=== PATIENT | male | born 1970 | race Caucasian/White ===

== ENCOUNTER 2019-03-15 10:10 | Inpatient (IN) | payer OTHER ==
[2019-03-15 10:43] VITALS: BMI 18.1
--- NOTE | 2019-03-15 12:00 | HP ---
CIWA Score Nausea/Vomitin-No Nausea/No Vomiting Muscle Tremors: 1-None Visible, but [place] Anxiety: 4-Mod. Anxious/Guarded Agitation: 1-Slight > Activity Paroxysmal Sweats: 1-Minimal Palms Moist Orientation: 2-Disoriented Date<2 days Tacttile Disturbances: 0-None Auditory Disturbances: 0-None Visual Disturbances: 0-None Headache: 1-Very Mild CIWA-Ar Total Score: 10 - Admission Criteria OASAS Guidelines: Admission for Medically Managed Detox: Requires at least one of the followin. CIWA greater than 12 2. Seizures within the past 24 hours 3. Delirium tremens within the past 24 hours 4. Hallucinations within the past 24 hours 5. Acute intervention needed for co occurring medical disorder 6. Acute intervention needed for co occurring psychiatric disorder 7. Severe withdrawal that cannot be handled at a lower level of care (continued vomiting, continued diarrhea, abnormal vital signs) requiring intravenous medication and/or fluids 8. Admitting History and Physical - Admission Chief Complaint: " I am here for detox from alcohol, cocaine and xanax." History of Present Illness: 48 year old male with alcohol with some withdrawals, cocaine use disorder, and marijuana use disorder. He is using 2 tall beers daily, last used yesterday. He denies having blackouts or withdrawal seizures. He was sober from 2016 until 1.5 years ago when he relapsed due to stressors including his mother who is very ill and he is the sole provider for her until recently when she got home care and home nursing. However, he has Crohn's disease and due to his dependence on xanax, his CIWA scores are probably less than it should be. Marijuana use is $10 daily, last used yesterday. Xanax he uses illicitly 2 sticks per day for 1 year now, daily. Smokes ciggarettes 1/2 ppd since 17 years of age. Has had some points of abstinence PMH: Crohn's Disease not well controlled on [facility]: Colostomy and Colectomy for bowel obstruction from Crohn's disease. He has otherwise very poor support systems in place. He lives with his mother who is chronically ill. - Smoking History Smoking history: Current every day smoker Have you smoked in the past 12 months: Yes Aproximately how many cigarettes per day: 10 - Alcohol/Substance Use Hx Alcohol Use: No Admission ROS S - HPI Chief Complaint: I am here for detox from alcohol, cocaine and xanax." Allergies/Adverse Reactions: Allergies Allergy/AdvReac Type Severity Reaction Status Date / Time No Known Allergies Allergy Verified 03/15/19 10:34 History of Present Illness: 48 year old male with alcohol with some withdrawals, cocaine use disorder, and marijuana use disorder. He is using 2 tall beers daily, last used yesterday. He denies having blackouts or withdrawal seizures. He was sober from 2015 until 1.5 years ago when he relapsed due to stressors including his mother who is very ill and he is the sole provider for her until recently when she got home care and home nursing. However, he has Crohn's disease and due to his dependence on xanax, his CIWA scores are probably less than it should be. Marijuana use is $10 daily, last used yesterday. Xanax he uses illicitly 2 sticks per day for 1 year now, daily. Smokes ciggarettes 1/2 ppd since 17 years of age. Has had some points of abstinence PMH: Crohn's Disease not well controlled on [facility]: Colostomy and Colectomy for bowel obstruction from Crohn's disease. He has otherwise very poor support systems in place. He lives with his mother who is chronically ill. - Ebola screening Have you traveled outside of the country in the last 21 days: No Have you had contact with anyone from an Ebola affected area: No Patient History - Patient Medical History Hx Anemia: No Hx Asthma: No Hx Chronic Obstructive Pulmonary Disease (COPD): No Hx Cancer: No Hx Cardiac Disorders: No Hx Hypertension: No Hx Hypercholesterolemia: No Hx Pacemaker: No HX Cerebrovascular Accident: No Hx Seizures: No Hx Dementia: No Hx Diabetes: No Hx Gastrointestinal Disorders: Yes (acid reflux/ crohnes disease ) Hx Liver Disease: No Hx Genitourinary Disorders: No Hx Sexually Transmitted Disorders: No Hx Renal Disease (ESRD): No Hx Thyroid Disease: No Hx Human Immunodeficiency Virus (HIV): No Hx Hepatitis C: No Hx Depression: Yes Hx Suicide Attempt: No Hx Bipolar Disorder: No Hx Schizophrenia: No - Patient Surgical History Past Surgical History: Yes Hx Neurologic Surgery: No Hx Cataract Extraction: No Hx Cardiac Surgery: No Hx Lung Surgery: No Hx Breast Surgery: No Hx Breast Biopsy: No Hx Abdominal Surgery: No Hx Appendectomy: No Hx Cholecystectomy: No Hx Genitourinary Surgery: No Hx Section: No Hx Orthopedic Surgery: No Other Surgical History: colectomy with colostomy due to crohn's disease Anesthesia Reaction: No - PPD History Previous Implant?: Yes Documented Results: Negative w/proof Implanted On Prior [facility] Admission?: Yes Date: 02/08/16 Results: negative PPD to be Administered?: Yes - Smoking Cessation Smoking history: Current every day smoker Have you smoked in the past 12 months: Yes Aproximately how many cigarettes per day: 10 Hx Chewing Tobacco Use: No Initiated information on smoking cessation: Yes 'Breaking Loose' booklet given: 03/15/19 - Substances abused Alcohol Substance route: Oral Frequency: Daily Amount used: BEERS- 2-3(24OZ) Age of first use: 15 Date of last use: 03/14/19 Alprazolam (Xanax) Substance route: Oral Frequency: Daily Amount used: 4MG Age of first use: 40 Date of last use: 03/15/19 Marijuana/Hashish Substance route: Smoking Frequency: Daily Amount used: $10 Age of first use: 15 Date of last use: 03/15/19 Admission Physical Exam BHS - Vital Signs Vital Signs: Vital Signs - 24 hr 03/15/19 10:26 Temperature 98.2 F Pulse Rate 75 Respiratory 18 Rate Blood Pressure 107/70 - Physical General Appearance: Yes: Cachetic, Sweating, Anxious HEENTM: Yes: EOMI, Hearing grossly Normal, Normocephalic, JARROD, Pharynx Normal, Tm's normal Respiratory: Yes: Chest Non-Tender, Lungs Clear, Normal Breath Sounds, No Respiratory Distress, No Accessory Muscle Use Neck: Yes: No masses,lesions,Nodules, Supple, Trachea in good position Breast: Yes: Within Normal Limits Cardiology: Yes: Regular Rhythm, S1, S2, Tachycardia Abdominal: Yes: Normal Bowel Sounds, Non Tender, Flat, Soft Genitourinary: Yes: Within Normal Limits Back: Yes: Normal Inspection Musculoskeletal: Yes: full range of Motion, Gait Steady Extremities: Yes: Normal Capillary Refill, Normal Inspection, Normal Range of Motion, Non-Tender Neurological: Yes: bulk fluids handler II-XII NML intact, Fully Oriented, Alert, Motor Strength 5/5, Normal Mood/Affect, Normal Response Integumentary: Yes: Normal Color, Warm Lymphatic: Yes: Within Normal Limits - Diagnostic (1) Alcohol dependence with withdrawal Current Visit: Yes Status: Acute (2) Nicotine dependence Current Visit: Yes Status: Acute Qualifiers: Nicotine product type: cigarettes Substance use status: uncomplicated Qualified Code(s): F17.210 - Nicotine dependence, cigarettes, uncomplicated (3) Opioid dependence on agonist therapy Current Visit: Yes Status: Acute (4) Sedative, hypnotic or anxiolytic dependence with withdrawal, uncomplicated Current Visit: Yes Status: Acute (5) Methadone maintenance therapy patient Current Visit: Yes Status: Chronic Comment: pt receives 90mg of methadone last dose today. verification done Screened but not Admitted - Documentation of Visit Screened but not Admitted: No Breathalyzer - Breathalyzer Breathalyzer: 0 Urine Drug Screen - Test Device Lot number: [id number] Expiration date: 10/28/20 - Control Is test valid?: Yes - Results Drug screen NEGATIVE: No Urine drug screen results: THC-Marijuana, ELIAS-Cocaine, MOP-Opiates, OXY- Oxycodone, MTD-Methadone, BZO-Benzodiazepines Inpatient Rehab Admission - Rehab Decision to Admit Inpatient rehab admission?: No
[2019-03-15] MEDS ORDERED: IBUPROFEN 400 MG TABLET (FP) PO PRN (12:12)
[2019-03-15] MEDS ORDERED: MAGNESIUM HYDROX 2400MG/30ML ORAL SUSPENSION 30 ML CUP PO PRN (12:12)
[2019-03-15] MEDS ORDERED: MAG HYDROX/AL HYDROX/SIMETH 30 ML UNIT-DOSE CUP PO PRN (12:12)
[2019-03-15] MEDS ORDERED: MENTHOL/PHENOL 1 EACH UD MM PRN (12:12)
[2019-03-15] MEDS ORDERED: BISMUTH SUBSALICYLATE 262 MG/15 ML BTL PO PRN (12:12)
[2019-03-15] MEDS ORDERED: ACETAMINOPHEN 325 MG TABLET (FP) PO PRN ×2 (12:12)
[2019-03-15] MEDS ORDERED: MELATONIN 5 MG TABLETS PO PRN (12:12)
[2019-03-15] MEDS ORDERED: MAGNESIUM CITRATE 300 ML BOTTLE PO PRN (12:12)
[2019-03-15] MEDS ORDERED: FAMOTIDINE 20 MG TABLET PO PRN (12:14)
[2019-03-15] MEDS: chlordiazePOXIDE HCL 25 MG CAPSULE PO SCH ×2 (13:42→21:50)
[2019-03-15 14:34] LABS: HEMATOCRIT 36.7 % (35.4-49); HEMOGLOBIN 12.2 GM/dL (11.7-16.9); MCH 28.7 pg (25.7-33.7); MCHC 33.3 g/dl (32.0-35.9); MEAN CELL VOLUME 86.2 fl (80-96); MEAN PLT VOLUME 10.2 fl (7.5-11.1); PLATELET COUNT 229 K/MM3 (134-434); RBC 4.26 M/mm3 (4.00-5.60); RDW 15.7 % (11.9-15.9); WHITE BLOOD COUNT 9.3 K/mm3 (4.0-10.0)
[2019-03-15 14:44] LABS: ALBUMIN 3.4 g/dl (3.4-5.0); BILIRUBIN,TOTAL 0.2 mg/dL (0.2-1); BLOOD UREA NITROGEN 9.5 mg/dL (7-18); CALCIUM 8.7 mg/dL (8.5-10.1); CREATININE 0.9 mg/dL (0.55-1.3); POTASSIUM 4.2 mmol/L (3.5-5.1); TOT PROT 6.1 g/dl (6.4-8.2)
[2019-03-15] MEDS: METHOCARBAMOL 500 MG TABLET PO PRN ×2 (17:15→21:51)
[2019-03-15] MEDS: chlordiazePOXIDE HCL 10 MG CAPSULE PO PRN (17:16)
[2019-03-15] MEDS: NICOTINE POLACRILEX 2 MG GUM BUC PRN ×2 (19:54→21:17)
[2019-03-15] MEDS: THIAMINE HCL 100 MG TABLET (FP) PO SCH (21:52)
[2019-03-16] MEDS ORDERED: METHADONE HCL 10 MG TABLET ONE (05:24)
[2019-03-16] MEDS ORDERED: METHADONE HCL 40 MG DISPERSABLE TABLET ONE (05:24)
[2019-03-16] MEDS ORDERED: METHADONE HCL 10 MG TABLET PO SCH (06:00)
[2019-03-16] MEDS: chlordiazePOXIDE HCL 25 MG CAPSULE PO SCH ×3 (06:10→22:14)
[2019-03-16] MEDS: METHADONE 80 MG, METHADONE 10 MG PO SCH (06:10)
[2019-03-16] MEDS: NICOTINE POLACRILEX 2 MG GUM BUC PRN ×6 (06:13→21:03)
[2019-03-16] MEDS: PRENATAL VITAMINS W/ FOLIC ACID TABLET (FP) PO SCH (11:08)
[2019-03-16] MEDS: NICOTINE 14 MG/24 HOURS TOPICAL PATCH TD SCH (11:08)
--- NOTE | 2019-03-16 12:43 | PN ---
S CIWA - CIWA Score Nausea/Vomitin-No Nausea/No Vomiting Muscle Tremors: 3 Anxiety: 3 Agitation: 4-Moderately Restless Paroxysmal Sweats: 3 Orientation: 0-Oriented Tacttile Disturbances: 0-None Auditory Disturbances: 0-None Visual Disturbances: 0-None Headache: 0-None Present CIWA-Ar Total Score: 13 BHS Progress Note (SOAP) Subjective: sweats shakes interrupted sleep body aches i need to see dietary performance consultant. I have chrons disease. Objective: 03/16/19 12:42 Vital Signs Temperature 98.1 F 03/16/19 10:03 Pulse Rate 61 03/16/19 10:03 Respiratory Rate 18 03/16/19 10:03 Blood Pressure 107/61 03/16/19 10:03 O2 Sat by Pulse Oximetry (%) Laboratory Tests 03/15/19 03/15/19 03/15/19 12:00 12:00 12:00 WBC 9.3 RBC 4.26 Hgb 12.2 Hct 36.7 D MCV 86.2 MCH 28.7 D MCHC 33.3 RDW 15.7 D Plt Count 229 MPV 10.2 Sodium 142 Potassium 4.2 Chloride 108 H Carbon Dioxide 28 Anion Gap 6 L BUN 9.5 Creatinine 0.9 Est GFR (CKD-EPI)AfAm 115.83 Est GFR (CKD-EPI)NonAf 99.94 Random Glucose 81 Calcium 8.7 Total Bilirubin 0.2 AST 19 ALT 22 Alkaline Phosphatase 82 Total Protein 6.1 L Albumin 3.4 RPR Titer Nonreactive labs noted aaox3 ambulating no acute distress Assessment: 03/16/19 12:42 withdrawal sx Plan: continue detox increase fluids ensure bid dietary consultation ordered
[2019-03-16] MEDS: METHOCARBAMOL 500 MG TABLET PO PRN ×2 (13:24→19:37)
[2019-03-16] MEDS: hydrOXYzine PAMOATE 25 MG CAPSULE (FP) PO PRN (15:58)
[2019-03-16] MEDS: chlordiazePOXIDE HCL 10 MG CAPSULE PO PRN (17:31)
[2019-03-16] MEDS: MELATONIN 5 MG TABLETS PO PRN (22:14)
[2019-03-16] MEDS: THIAMINE HCL 100 MG TABLET (FP) PO SCH (22:14)
[2019-03-17] MEDS: hydrOXYzine PAMOATE 25 MG CAPSULE (FP) PO PRN ×2 (02:47→15:14)
[2019-03-17] MEDS ORDERED: METHADONE HCL 10 MG TABLET ONE (03:41)
[2019-03-17] MEDS ORDERED: METHADONE HCL 40 MG DISPERSABLE TABLET ONE (03:41)
[2019-03-17] MEDS: METHADONE 80 MG, METHADONE 10 MG PO SCH (05:55)
[2019-03-17] MEDS: chlordiazePOXIDE 5 MG CAPSULE PO SCH ×3 (05:59→22:11)
[2019-03-17] MEDS: NICOTINE POLACRILEX 2 MG GUM BUC PRN ×4 (07:09→15:17)
[2019-03-17] MEDS: NICOTINE 14 MG/24 HOURS TOPICAL PATCH TD SCH (10:55)
[2019-03-17] MEDS: PRENATAL VITAMINS W/ FOLIC ACID TABLET (FP) PO SCH (10:55)
--- NOTE | 2019-03-17 15:27 | PN ---
S CIWA - CIWA Score Nausea/Vomitin-No Nausea/No Vomiting Muscle Tremors: 3 Anxiety: 2 Agitation: 3 Paroxysmal Sweats: 2 Orientation: 0-Oriented Tacttile Disturbances: 0-None Auditory Disturbances: 0-None Visual Disturbances: 0-None Headache: 0-None Present CIWA-Ar Total Score: 10 S Progress Note (SOAP) Subjective: anxiety sweats interrupted sleep Objective: 03/17/19 15:24 Vital Signs Temperature 98.4 F 03/17/19 14:28 Pulse Rate 61 03/17/19 14:28 Respiratory Rate 18 03/17/19 14:28 Blood Pressure 119/75 03/17/19 14:28 O2 Sat by Pulse Oximetry (%) Laboratory Tests 03/15/19 03/15/19 03/15/19 12:00 12:00 12:00 WBC 9.3 RBC 4.26 Hgb 12.2 Hct 36.7 D MCV 86.2 MCH 28.7 D MCHC 33.3 RDW 15.7 D Plt Count 229 MPV 10.2 Sodium 142 Potassium 4.2 Chloride 108 H Carbon Dioxide 28 Anion Gap 6 L BUN 9.5 Creatinine 0.9 Est GFR (CKD-EPI)AfAm 115.83 Est GFR (CKD-EPI)NonAf 99.94 Random Glucose 81 Calcium 8.7 Total Bilirubin 0.2 AST 19 ALT 22 Alkaline Phosphatase 82 Total Protein 6.1 L Albumin 3.4 RPR Titer Nonreactive labs noted aaox3 ambulating Assessment: 03/17/19 15:27 withdrawals Plan: continue detox
[2019-03-17] MEDS: THIAMINE HCL 100 MG TABLET (FP) PO SCH (22:11)
[2019-03-17] MEDS: MELATONIN 5 MG TABLETS PO PRN (22:12)
[2019-03-18] MEDS ORDERED: chlordiazePOXIDE HCL 10 MG CAPSULE PO PRN
[2019-03-18] MEDS: NICOTINE POLACRILEX 2 MG GUM BUC PRN ×5 (02:41→21:31)
[2019-03-18] MEDS ORDERED: METHADONE HCL 10 MG TABLET ONE (04:15)
[2019-03-18] MEDS ORDERED: METHADONE HCL 40 MG DISPERSABLE TABLET ONE (04:15)
[2019-03-18] MEDS: METHADONE 80 MG, METHADONE 10 MG PO SCH (06:02)
[2019-03-18] MEDS: chlordiazePOXIDE HCL 10 MG CAPSULE PO SCH ×3 (06:03→22:33)
[2019-03-18] MEDS: PRENATAL VITAMINS W/ FOLIC ACID TABLET (FP) PO SCH (10:20)
[2019-03-18] MEDS: NICOTINE 14 MG/24 HOURS TOPICAL PATCH TD SCH (10:20)
--- NOTE | 2019-03-18 12:58 | PN ---
S CIWA - CIWA Score Nausea/Vomitin-No Nausea/No Vomiting Muscle Tremors: None Anxiety: 2 Agitation: 0-Normal Activity Paroxysmal Sweats: 2 Orientation: 0-Oriented Tacttile Disturbances: 0-None Auditory Disturbances: 0-None Visual Disturbances: 0-None Headache: 2-Mild CIWA-Ar Total Score: 6 BHS Progress Note (SOAP) Subjective: c/o headache, sweats, and anxiety. Objective: 03/18/19 12:57 Vital Signs 03/18/19 03/18/19 03/18/19 06:00 09:50 12:40 Temperature 97.7 F 98.1 F 98.6 F Pulse Rate 68 63 74 Respiratory 18 18 18 Rate Blood Pressure 121/78 127/76 126/61 Laboratory Last Values WBC 9.3 K/mm3 (4.0-10.0) 03/15/19 12:00 RBC 4.26 M/mm3 (4.00-5.60) 03/15/19 12:00 Hgb 12.2 GM/dL (11.7-16.9) 03/15/19 12:00 Hct 36.7 % (35.4-49) D 03/15/19 12:00 MCV 86.2 fl (80-96) 03/15/19 12:00 MCH 28.7 pg (25.7-33.7) D 03/15/19 12:00 MCHC 33.3 g/dl (32.0-35.9) 03/15/19 12:00 RDW 15.7 % (11.9-15.9) D 03/15/19 12:00 Plt Count 229 K/MM3 (134-434) 03/15/19 12:00 MPV 10.2 fl (7.5-11.1) 03/15/19 12:00 Sodium 142 mmol/L (136-145) 03/15/19 12:00 Potassium 4.2 mmol/L (3.5-5.1) 03/15/19 12:00 Chloride 108 mmol/L (98-107) H 03/15/19 12:00 Carbon Dioxide 28 mmol/L (21-32) 03/15/19 12:00 Anion Gap 6 MMOL/L (8-16) L 03/15/19 12:00 BUN 9.5 mg/dL (7-18) 03/15/19 12:00 Creatinine 0.9 mg/dL (0.55-1.3) 03/15/19 12:00 Est GFR (CKD-EPI)AfAm 115.83 03/15/19 12:00 Est GFR (CKD-EPI)NonAf 99.94 03/15/19 12:00 Random Glucose 81 mg/dL (74-106) 03/15/19 12:00 Calcium 8.7 mg/dL (8.5-10.1) 03/15/19 12:00 Total Bilirubin 0.2 mg/dL (0.2-1) 03/15/19 12:00 AST 19 U/L (15-37) 03/15/19 12:00 ALT 22 U/L (13-61) 03/15/19 12:00 Alkaline Phosphatase 82 U/L (45-117) 03/15/19 12:00 Total Protein 6.1 g/dl (6.4-8.2) L 03/15/19 12:00 Albumin 3.4 g/dl (3.4-5.0) 03/15/19 12:00 RPR Titer Nonreactive (NONREACTIVE) 03/15/19 12:00 Labs noted. Assessment: 03/18/19 12:58 AOX3, in no acute respiratory distress. Full ROM, ambulating in the unit. Withdrawal symptoms. For d/c tomorrow. Plan: continue detox. D/C in AM.
[2019-03-18] MEDS: METHOCARBAMOL 500 MG TABLET PO PRN (18:52)
[2019-03-18] MEDS: THIAMINE HCL 100 MG TABLET (FP) PO SCH (22:33)
[2019-03-18] MEDS: MELATONIN 5 MG TABLETS PO PRN (22:34)
[2019-03-19] MEDS: hydrOXYzine PAMOATE 25 MG CAPSULE (FP) PO PRN (01:36)
[2019-03-19] MEDS ORDERED: chlordiazePOXIDE HCL 10 MG CAPSULE PO ONE (05:00)
[2019-03-19] MEDS ORDERED: METHADONE HCL 10 MG TABLET ONE (06:03)
[2019-03-19] MEDS ORDERED: METHADONE HCL 40 MG DISPERSABLE TABLET ONE (06:03)
[2019-03-19] MEDS: METHADONE 80 MG, METHADONE 10 MG PO SCH (06:04)
[2019-03-19] MEDS: NICOTINE POLACRILEX 2 MG GUM BUC PRN (07:21)
[2019-03-19 09:54] VITALS: BP 139/76; PULSE 68; TEMP 97.9
--- NOTE | 2019-03-19 17:24 | DS ---
[facility] Detox Discharge Summary Admission Date: 03/15/19 - History Present History: Alcohol Dependence, Cannabis Dependence, Cocaine Dependence, Sedative Dependence Additional Comments: Patient completed detox successfully and discharged safely. Instructed to follow up with PCP/Psychiatrist within 1-2 weeks. Pertinent Past History: Crohn's disease GERD - Physical Exam Results Vital Signs: Vital Signs Temperature 97.9 F 03/19/19 09:50 Pulse Rate 68 03/19/19 09:50 Respiratory Rate 18 03/19/19 09:50 Blood Pressure 139/76 03/19/19 09:50 O2 Sat by Pulse Oximetry (%) Pertinent Admission Physical Exam Findings: Withdrawal sxs Laboratory Tests 03/15/19 03/15/19 03/15/19 12:00 12:00 12:00 WBC 9.3 RBC 4.26 Hgb 12.2 Hct 36.7 D MCV 86.2 MCH 28.7 D MCHC 33.3 RDW 15.7 D Plt Count 229 MPV 10.2 Sodium 142 Potassium 4.2 Chloride 108 H Carbon Dioxide 28 Anion Gap 6 L BUN 9.5 Creatinine 0.9 Est GFR (CKD-EPI)AfAm 115.83 Est GFR (CKD-EPI)NonAf 99.94 Random Glucose 81 Calcium 8.7 Total Bilirubin 0.2 AST 19 ALT 22 Alkaline Phosphatase 82 Total Protein 6.1 L Albumin 3.4 RPR Titer Nonreactive Labs reviewed - Treatment Hospital Course: Detox Protocol Followed, Detoxed Safely, Responded well, Discharged Condition Good - Medication Discharge Medications: Ambulatory Orders Ranitidine [Zantac -] 150 mg PO DAILY PRN 03/15/19 Zolpidem Tartrate [Ambien] 10 mg PO HS 03/15/19 - Diagnosis (1) Cocaine dependence Status: Chronic (2) Cannabis dependence Status: Chronic (3) Crohn disease Status: Chronic (4) GERD (gastroesophageal reflux disease) Status: Chronic (5) Depression Status: Chronic (6) Alcohol dependence with withdrawal Status: Acute (7) Nicotine dependence Status: Chronic Qualifiers: Nicotine product type: cigarettes Substance use status: uncomplicated Qualified Code(s): F17.210 - Nicotine dependence, cigarettes, uncomplicated (8) Sedative, hypnotic or anxiolytic dependence with withdrawal, uncomplicated Status: Acute - AMA Did Patient Leave Against Medical Advice: No (Follow up with PCP within 1-2 weeks)
== END 2019-03-19 10:30 | disposition home or self-care (01) | DRG 897 ==
LOC: YASAS 10:10 → Y6N 12:39
PROVIDERS: ADMIT Allergy & Immunology; ATTEND Allergy & Immunology
PROC: HZ2ZZZZ Detoxification Services for Substance Abuse Treatment (ICD-10-PCS; principal; 2019-03-15)
DX: F10.230 Alcohol dependence with withdrawal, uncomplicated (principal); F11.20 Opioid dependence, uncomplicated; F14.20 Cocaine dependence, uncomplicated; K50.90 Crohn's disease, unspecified, without complications; F13.230 Sedative, hypnotic or anxiolytic dependence with withdrawal, uncomplicated; F12.20 Cannabis dependence, uncomplicated; F17.210 Nicotine dependence, cigarettes, uncomplicated; K21.9 Gastro-esophageal reflux disease without esophagitis; Z93.3 Colostomy status; Z90.49 Acquired absence of other specified parts of digestive tract
CPT/HCPCS: 36415; 80053; 85027; 86593

== ENCOUNTER 2020-06-19 10:36 | Inpatient (IN) | payer OTHER ==
[2020-06-19 12:50] VITALS: BMI 19.3
[2020-06-19] MEDS ORDERED: MAG HYDROX/AL HYDROX/SIMETH 30 ML UNIT-DOSE CUP PO PRN (13:12)
[2020-06-19] MEDS ORDERED: MAGNESIUM CITRATE 300 ML BOTTLE PO PRN (13:12)
[2020-06-19] MEDS ORDERED: BISMUTH SUBSALICYLATE 524 MG/30 ML UD PO PRN (13:12)
[2020-06-19] MEDS ORDERED: MENTHOL/PHENOL 1 EACH UD MM PRN (13:12)
[2020-06-19] MEDS ORDERED: ONDANSETRON *ODT* 4 MG TABLET SL PRN (13:12)
[2020-06-19] MEDS ORDERED: MAGNESIUM HYDROX 2400MG/30ML ORAL SUSPENSION 30 ML CUP PO PRN (13:12)
[2020-06-19] MEDS ORDERED: METHOCARBAMOL 500 MG TABLET PO PRN (13:12)
[2020-06-19] MEDS ORDERED: ACETAMINOPHEN 325 MG TABLET (FP) PO PRN ×2 (13:12)
[2020-06-19] MEDS ORDERED: IBUPROFEN 400 MG TABLET (FP) PO PRN (13:12)
[2020-06-19] MEDS: hydrOXYzine PAMOATE 25 MG CAPSULE (FP) PO SCH ×3 (15:09→22:23)
[2020-06-19] MEDS: LORazepam 1 MG TABLET PO PRN (15:10)
[2020-06-19] MEDS: NICOTINE 14 MG/24 HOURS TOPICAL PATCH TD SCH (15:10)
[2020-06-19 15:50] LABS: HEMATOCRIT 33.8 % (35.4-49); HEMOGLOBIN 11.2 GM/dL (11.7-16.9); MCH 27.3 pg (25.7-33.7); MEAN CELL VOLUME 82.7 fl (80-96); MEAN PLT VOLUME 10.5 fl (7.5-11.1); PLATELET COUNT 241 K/MM3 (134-434); RBC 4.09 M/mm3 (4.00-5.60); RDW 17.9 % (11.9-15.9); WHITE BLOOD COUNT 8.3 K/mm3 (4.0-10.0)
[2020-06-19 16:14] LABS: POTASSIUM 3.8 mmol/L (3.5-5.1)
[2020-06-19 16:26] LABS: BLOOD UREA NITROGEN 13.4 mg/dL (7-18)
[2020-06-19 16:27] LABS: CALCIUM 8.8 mg/dL (8.5-10.1)
[2020-06-19 16:28] LABS: ALBUMIN 3.4 g/dl (3.4-5.0)
[2020-06-19 16:30] LABS: BILIRUBIN,TOTAL 0.2 mg/dL (0.2-1); CREATININE 0.8 mg/dL (0.55-1.3); TOT PROT 6.5 g/dl (6.4-8.2)
[2020-06-19] MEDS: LORazepam 2 MG TABLET PO SCH ×2 (17:48→22:23)
[2020-06-19] MEDS: NICOTINE POLACRILEX 2 MG GUM BUC PRN ×2 (19:14→22:51)
[2020-06-19] MEDS ORDERED: MELATONIN 5 MG TABLETS PO SCH (22:00)
[2020-06-19] MEDS: THIAMINE HCL 100 MG TABLET (FP) PO SCH (22:23)
[2020-06-19] MEDS: SUVOREXANT 10 MG TABLET PO PRN (22:24)
[2020-06-20] MEDS: LORazepam 2 MG TABLET PO SCH ×4 (05:58→22:31)
[2020-06-20] MEDS: hydrOXYzine PAMOATE 25 MG CAPSULE (FP) PO SCH ×2 (05:58→10:09)
[2020-06-20] MEDS: NICOTINE POLACRILEX 2 MG GUM BUC PRN ×4 (06:14→22:33)
[2020-06-20] MEDS ORDERED: METHADONE HCL 10 MG TABLET PO SCH (06:45)
[2020-06-20] MEDS ORDERED: METHADONE HCL 10 MG TABLET ONE (06:48)
[2020-06-20] MEDS ORDERED: METHADONE HCL 40 MG DISPERSABLE TABLET ONE (06:48)
[2020-06-20] MEDS: METHADONE 80 MG, METHADONE 30 MG PO SCH (06:51)
[2020-06-20] MEDS: NICOTINE 14 MG/24 HOURS TOPICAL PATCH TD SCH (10:09)
[2020-06-20] MEDS: PRENATAL VITAMINS W/ FOLIC ACID TABLET (FP) PO SCH (10:09)
[2020-06-20] MEDS: ARIPiprazole 2 MG TABLET PO SCH (11:18)
[2020-06-20] MEDS: hydrOXYzine PAMOATE 25 MG CAPSULE (FP) PO PRN (13:59)
[2020-06-20] MEDS: LORazepam 1 MG TABLET PO PRN (13:59)
[2020-06-20] MEDS: PANTOPRAZOLE 40 MG TABLET PO SCH (15:27)
[2020-06-20] MEDS: SUVOREXANT 10 MG TABLET PO PRN (22:31)
[2020-06-20] MEDS: THIAMINE HCL 100 MG TABLET (FP) PO SCH (22:31)
[2020-06-21] MEDS ORDERED: METHADONE HCL 10 MG TABLET ONE (04:12)
[2020-06-21] MEDS ORDERED: METHADONE HCL 40 MG DISPERSABLE TABLET ONE (04:13)
[2020-06-21] MEDS: METHADONE 80 MG, METHADONE 30 MG PO SCH (05:35)
[2020-06-21] MEDS: LORazepam 1 MG TABLET PO SCH ×4 (05:35→22:00)
[2020-06-21] MEDS: NICOTINE POLACRILEX 2 MG GUM BUC PRN ×4 (07:05→22:25)
[2020-06-21] MEDS: PRENATAL VITAMINS W/ FOLIC ACID TABLET (FP) PO SCH (10:11)
[2020-06-21] MEDS: ARIPiprazole 2 MG TABLET PO SCH (10:11)
[2020-06-21] MEDS: PANTOPRAZOLE 40 MG TABLET PO SCH (10:12)
[2020-06-21] MEDS: NICOTINE 14 MG/24 HOURS TOPICAL PATCH TD SCH (10:12)
[2020-06-21] MEDS: HYDROCORTISONE 1% TOPICAL CREAM 30 GM TUBE TP PRN (10:53)
[2020-06-21] MEDS: hydrOXYzine PAMOATE 25 MG CAPSULE (FP) PO PRN (13:13)
[2020-06-21] MEDS ORDERED: SODIUM CHLORIDE NASAL SPRAY 44 ML BOTTLE NS PRN (15:44)
[2020-06-21] MEDS: THIAMINE HCL 100 MG TABLET (FP) PO SCH (21:21)
[2020-06-21] MEDS: QUEtiapine FUMARATE 25 MG TABLET PO SCH (21:21)
[2020-06-21] MEDS ORDERED: QUEtiapine FUMARATE 25 MG TABLET PO SCH (22:00)
[2020-06-22] MEDS ORDERED: LORazepam 0.5 MG TABLET PO PRN
[2020-06-22] MEDS ORDERED: METHADONE HCL 40 MG DISPERSABLE TABLET ONE (04:16)
[2020-06-22] MEDS ORDERED: METHADONE HCL 10 MG TABLET ONE (04:16)
[2020-06-22] MEDS: NICOTINE POLACRILEX 2 MG GUM BUC PRN ×4 (04:45→22:14)
[2020-06-22] MEDS: LORazepam 0.5 MG TABLET PO SCH ×4 (05:22→22:11)
[2020-06-22] MEDS: METHADONE 80 MG, METHADONE 30 MG PO SCH (05:22)
[2020-06-22] MEDS: PRENATAL VITAMINS W/ FOLIC ACID TABLET (FP) PO SCH (10:30)
[2020-06-22] MEDS: ARIPiprazole 2 MG TABLET PO SCH (10:30)
[2020-06-22] MEDS: NICOTINE 14 MG/24 HOURS TOPICAL PATCH TD SCH (10:32)
[2020-06-22] MEDS: PANTOPRAZOLE 40 MG TABLET PO SCH (10:32)
[2020-06-22] MEDS: hydrOXYzine PAMOATE 25 MG CAPSULE (FP) PO PRN ×2 (17:23→22:12)
[2020-06-22] MEDS: QUEtiapine FUMARATE 25 MG TABLET PO SCH (22:11)
[2020-06-22] MEDS: THIAMINE HCL 100 MG TABLET (FP) PO SCH (22:11)
[2020-06-22] MEDS: HYDROCORTISONE 1% TOPICAL CREAM 30 GM TUBE TP PRN (22:12)
[2020-06-23] MEDS ORDERED: METHADONE HCL 10 MG TABLET ONE (04:05)
[2020-06-23] MEDS ORDERED: METHADONE HCL 40 MG DISPERSABLE TABLET ONE (04:06)
[2020-06-23] MEDS ORDERED: LORazepam 0.5 MG TABLET PO ONE (05:00)
[2020-06-23] MEDS: METHADONE 80 MG, METHADONE 30 MG PO SCH (05:16)
[2020-06-23 06:32] VITALS: BP 136/83; PULSE 70; TEMP 98
[2020-06-23] MEDS: NICOTINE POLACRILEX 2 MG GUM BUC PRN (07:39)
[2020-06-23] MEDS: NICOTINE 14 MG/24 HOURS TOPICAL PATCH TD SCH (09:00)
[2020-06-23] MEDS: PRENATAL VITAMINS W/ FOLIC ACID TABLET (FP) PO SCH (09:00)
[2020-06-23] MEDS: ARIPiprazole 2 MG TABLET PO SCH (09:00)
[2020-06-23] MEDS: PANTOPRAZOLE 40 MG TABLET PO SCH (09:00)
== END 2020-06-23 09:04 | disposition home or self-care (01) | DRG 897 ==
LOC: YASAS 10:36 → Y3N 12:59
PROVIDERS: ADMIT Allergy & Immunology; ATTEND Allergy & Immunology
PROC: HZ2ZZZZ Detoxification Services for Substance Abuse Treatment (ICD-10-PCS; principal; 2020-06-19)
DX: F13.230 Sedative, hypnotic or anxiolytic dependence with withdrawal, uncomplicated (principal); F11.20 Opioid dependence, uncomplicated; K50.90 Crohn's disease, unspecified, without complications; Z68.1 Body mass index [BMI] 19.9 or less, adult; F12.20 Cannabis dependence, uncomplicated; F17.210 Nicotine dependence, cigarettes, uncomplicated; F41.9 Anxiety disorder, unspecified; K21.9 Gastro-esophageal reflux disease without esophagitis; R21 Rash and other nonspecific skin eruption; R63.4 Abnormal weight loss; Z87.19 Personal history of other diseases of the digestive system; Z98.890 Other specified postprocedural states
CPT/HCPCS: 36415; 80053; 85027; 86780; 93005; 93010; C9803; U0003

== ENCOUNTER 2020-11-01 12:24 | Inpatient (IN) | payer OTHER ==
[2020-11-01 13:43] VITALS: BMI 19.2
[2020-11-01] MEDS ORDERED: MAGNESIUM CITRATE 300 ML BOTTLE PO PRN (17:37)
[2020-11-01] MEDS ORDERED: ACETAMINOPHEN 325 MG TABLET (FP) PO PRN ×2 (17:37)
[2020-11-01] MEDS ORDERED: BISMUTH SUBSALICYLATE 524 MG/30 ML PO PRN (17:37)
[2020-11-01] MEDS ORDERED: MENTHOL/PHENOL 1 EACH UD MM PRN (17:37)
[2020-11-01] MEDS ORDERED: diazePAM 5 MG TABLET PO ONE (17:37)
[2020-11-01] MEDS ORDERED: METHOCARBAMOL 500 MG TABLET PO PRN (17:37)
[2020-11-01] MEDS ORDERED: ONDANSETRON *ODT* 4 MG TABLET SL PRN (17:37)
[2020-11-01] MEDS ORDERED: IBUPROFEN 400 MG TABLET (FP) PO PRN (17:37)
[2020-11-01] MEDS ORDERED: MAG HYDROX/AL HYDROX/SIMETH 30 ML UNIT-DOSE CUP PO PRN (17:37)
[2020-11-01] MEDS ORDERED: MAGNESIUM HYDROX 2400MG/30ML ORAL SUSPENSION 30 ML CUP PO PRN (17:37)
[2020-11-01] MEDS: PRENATAL VITAMINS W/ FOLIC ACID TABLET (FP) PO SCH (18:52)
[2020-11-01] MEDS: NICOTINE 21 MG/24 HOURS TOPICAL PATCH TD SCH (18:52)
[2020-11-01] MEDS: hydrOXYzine PAMOATE 25 MG CAPSULE (FP) PO SCH ×2 (18:55→22:36)
[2020-11-01] MEDS: LIDOCAINE 5% TOPICAL PATCH TP SCH (18:55)
[2020-11-01] MEDS: NICOTINE POLACRILEX 2 MG GUM BUC PRN ×2 (20:02→22:42)
[2020-11-01] MEDS ORDERED: MELATONIN 5 MG TABLETS PO SCH (22:00)
[2020-11-01] MEDS: LIDOCAINE PATCH REMOVAL MC SCH (22:35)
[2020-11-01] MEDS: diazePAM 5 MG TABLET PO SCH (22:35)
[2020-11-01] MEDS: THIAMINE HCL 100 MG TABLET (FP) PO SCH (22:36)
[2020-11-02] MEDS: hydrOXYzine PAMOATE 25 MG CAPSULE (FP) PO SCH ×7 (06:07→23:45)
[2020-11-02] MEDS: diazePAM 5 MG TABLET PO SCH ×5 (06:07→23:45)
[2020-11-02] MEDS ORDERED: METHADONE HCL 40 MG DISPERSABLE TABLET ONE (06:54)
[2020-11-02] MEDS ORDERED: METHADONE HCL 10 MG TABLET ONE (06:54)
[2020-11-02] MEDS: METHADONE 80 MG, METHADONE 30 MG PO SCH (06:58)
[2020-11-02] MEDS ORDERED: METHADONE HCL 10 MG TABLET (FOR DETOX USE ONLY) PO SCH (08:00)
[2020-11-02] MEDS: NICOTINE POLACRILEX 2 MG GUM BUC PRN ×4 (08:52→23:36)
[2020-11-02] MEDS: PRENATAL VITAMINS W/ FOLIC ACID TABLET (FP) PO SCH (10:23)
[2020-11-02] MEDS: MULTIVITAMINS (DAILY MVI) TABLET (FP) PO SCH (10:23)
[2020-11-02] MEDS: ENTECAVIR 0.5 MG TABLET PO SCH (10:23)
[2020-11-02] MEDS: LIDOCAINE 5% TOPICAL PATCH TP SCH (10:25)
[2020-11-02] MEDS: NICOTINE 21 MG/24 HOURS TOPICAL PATCH TD SCH (10:26)
[2020-11-02] MEDS: THIAMINE HCL 100 MG TABLET (FP) PO SCH ×2 (22:39→23:45)
[2020-11-02] MEDS: LIDOCAINE PATCH REMOVAL MC SCH (22:40)
[2020-11-02] MEDS: SUVOREXANT 10 MG TABLET PO PRN ×2 (22:40→23:45)
[2020-11-03] MEDS ORDERED: METHADONE HCL 40 MG DISPERSABLE TABLET ONE (04:42)
[2020-11-03] MEDS ORDERED: METHADONE HCL 10 MG TABLET ONE (04:42)
[2020-11-03] MEDS: hydrOXYzine PAMOATE 25 MG CAPSULE (FP) PO SCH ×5 (05:53→22:03)
[2020-11-03] MEDS: diazePAM 5 MG TABLET PO SCH ×3 (05:54→22:03)
[2020-11-03] MEDS: METHADONE 80 MG, METHADONE 30 MG PO SCH (05:55)
[2020-11-03] MEDS: NICOTINE POLACRILEX 2 MG GUM BUC PRN ×3 (09:06→17:47)
[2020-11-03] MEDS: MULTIVITAMINS (DAILY MVI) TABLET (FP) PO SCH (10:35)
[2020-11-03] MEDS: LIDOCAINE 5% TOPICAL PATCH TP SCH (10:35)
[2020-11-03] MEDS: PRENATAL VITAMINS W/ FOLIC ACID TABLET (FP) PO SCH (10:35)
[2020-11-03] MEDS: NICOTINE 21 MG/24 HOURS TOPICAL PATCH TD SCH (10:35)
[2020-11-03] MEDS: ENTECAVIR 0.5 MG TABLET PO SCH (10:35)
[2020-11-03] MEDS: ARIPiprazole 2 MG TABLET PO SCH (10:40)
[2020-11-03] MEDS: AMOXICILLIN 500 MG CAPSULE (FP) PO SCH ×2 (14:17→22:03)
[2020-11-03] MEDS: METHYL SALICYLATE/MENTHOL OINT 30 GM TUBE TP SCH ×2 (14:18→22:08)
[2020-11-03] MEDS: diazePAM 5 MG TABLET PO PRN (17:39)
[2020-11-03] MEDS: THIAMINE HCL 100 MG TABLET (FP) PO SCH (22:03)
[2020-11-03] MEDS: SUVOREXANT 10 MG TABLET PO PRN (22:04)
[2020-11-03] MEDS: LIDOCAINE PATCH REMOVAL MC SCH (22:04)
[2020-11-04] MEDS ORDERED: METHADONE HCL 10 MG TABLET ONE (04:38)
[2020-11-04] MEDS ORDERED: METHADONE HCL 40 MG DISPERSABLE TABLET ONE (04:39)
[2020-11-04] MEDS: METHADONE 80 MG, METHADONE 30 MG PO SCH (05:31)
[2020-11-04] MEDS: hydrOXYzine PAMOATE 25 MG CAPSULE (FP) PO SCH ×3 (05:56→14:25)
[2020-11-04] MEDS ORDERED: diazePAM 5 MG TABLET PO SCH (06:00)
[2020-11-04] MEDS: NICOTINE POLACRILEX 2 MG GUM BUC PRN ×2 (09:09→15:14)
[2020-11-04 10:20] LABS: HEMATOCRIT 35.7 % (35.4-49); HEMOGLOBIN 11.6 GM/dL (11.7-16.9); MCH 25.9 pg (25.7-33.7); MCHC 32.6 g/dl (32.0-35.9); MEAN CELL VOLUME 79.5 fl (80-96); MEAN PLT VOLUME 9.2 fl (7.5-11.1); PLATELET COUNT 317 K/MM3 (134-434); RBC 4.49 M/mm3 (4.00-5.60); RDW 18.6 % (11.9-15.9); WHITE BLOOD COUNT 10.3 K/mm3 (4.0-10.0)
[2020-11-04 10:24] LABS: ALBUMIN 3.4 g/dl (3.4-5.0); BLOOD UREA NITROGEN 12.6 mg/dL (7-18)
[2020-11-04 10:26] LABS: BILIRUBIN,TOTAL 0.7 mg/dL (0.2-1); CALCIUM 9.1 mg/dL (8.5-10.1); TOT PROT 6.6 g/dl (6.4-8.2)
[2020-11-04 10:28] LABS: CREATININE 0.9 mg/dL (0.55-1.3)
[2020-11-04] MEDS: MULTIVITAMINS (DAILY MVI) TABLET (FP) PO SCH (10:32)
[2020-11-04] MEDS: AMOXICILLIN 500 MG CAPSULE (FP) PO SCH (10:32)
[2020-11-04] MEDS: ENTECAVIR 0.5 MG TABLET PO SCH (10:33)
[2020-11-04] MEDS: ARIPiprazole 2 MG TABLET PO SCH (10:33)
[2020-11-04] MEDS: NICOTINE 21 MG/24 HOURS TOPICAL PATCH TD SCH (10:33)
[2020-11-04] MEDS: PRENATAL VITAMINS W/ FOLIC ACID TABLET (FP) PO SCH (10:33)
[2020-11-04] MEDS: LIDOCAINE 5% TOPICAL PATCH TP SCH (10:33)
[2020-11-04] MEDS: METHYL SALICYLATE/MENTHOL OINT 30 GM TUBE TP SCH (10:37)
[2020-11-04 13:40] VITALS: BP 109/59; PULSE 66; TEMP 96.9
[2020-11-04] MEDS: diazePAM 5 MG TABLET PO PRN (14:26)
[2020-11-05] MEDS ORDERED: diazePAM 5 MG TABLET PO ONE (06:00)
== END 2020-11-04 16:00 | disposition other institution (70) | DRG 897 ==
LOC: YASAS 12:24 → Y6N 17:18
PROVIDERS: ADMIT Allergy & Immunology; ATTEND Allergy & Immunology
PROC: HZ2ZZZZ Detoxification Services for Substance Abuse Treatment (ICD-10-PCS; principal; 2020-11-01)
DX: F13.230 Sedative, hypnotic or anxiolytic dependence with withdrawal, uncomplicated (principal); F11.20 Opioid dependence, uncomplicated; F19.280 Other psychoactive substance dependence with psychoactive substance-induced anxiety disorder; K50.90 Crohn's disease, unspecified, without complications; F19.282 Other psychoactive substance dependence with psychoactive substance-induced sleep disorder; F10.230 Alcohol dependence with withdrawal, uncomplicated; F12.20 Cannabis dependence, uncomplicated; F17.210 Nicotine dependence, cigarettes, uncomplicated; F19.24 Other psychoactive substance dependence with psychoactive substance-induced mood disorder; F41.8 Other specified anxiety disorders; F32.9 Major depressive disorder, single episode, unspecified; B18.2 Chronic viral hepatitis C; D50.9 Iron deficiency anemia, unspecified; K21.9 Gastro-esophageal reflux disease without esophagitis; Z98.890 Other specified postprocedural states; Z56.0 Unemployment, unspecified; Z59.0 Homelessness; Z87.81 Personal history of (healed) traumatic fracture; Z99.89 Dependence on other enabling machines and devices
CPT/HCPCS: 36415; 80053; 85027; 86780; C9803; U0003; U0005

== ENCOUNTER 2020-11-04 16:09 | Inpatient (IN) | payer OTHER ==
[2020-11-04] MEDS ORDERED: P-EPHED 60MG/TRIPROLIDI 2.5MG TABLET PO PRN (18:07)
[2020-11-04] MEDS ORDERED: guaiFENesin 200 MG/10 ML 10 ML UNIT-DOSE CUPS PO PRN (18:07)
[2020-11-04] MEDS ORDERED: LOPERAMIDE HCL 2 MG CAPSULE PO PRN (18:07)
[2020-11-04] MEDS ORDERED: MAGNESIUM CITRATE 300 ML BOTTLE PO PRN (18:07)
[2020-11-04] MEDS ORDERED: ACETAMINOPHEN 325 MG TABLET (FP) PO PRN (18:07)
[2020-11-04] MEDS ORDERED: MAGNESIUM HYDROX 2400MG/30ML ORAL SUSPENSION 30 ML CUP PO PRN (18:07)
[2020-11-04] MEDS ORDERED: MAG HYDROX/AL HYDROX/SIMETH 30 ML UNIT-DOSE CUP PO PRN (18:07)
[2020-11-04] MEDS ORDERED: IBUPROFEN 400 MG TABLET (FP) PO PRN (18:07)
[2020-11-04] MEDS ORDERED: MENTHOL/PHENOL 1 EACH UD MM PRN (18:07)
[2020-11-04] MEDS: SUVOREXANT 10 MG TABLET PO PRN (21:25)
[2020-11-04] MEDS: THIAMINE HCL 100 MG TABLET (FP) PO SCH (21:26)
[2020-11-04] MEDS: AMOXICILLIN 500 MG CAPSULE (FP) PO SCH (21:26)
[2020-11-04] MEDS: hydrOXYzine PAMOATE 25 MG CAPSULE (FP) PO SCH (21:26)
[2020-11-04] MEDS ORDERED: MELATONIN 5 MG TABLETS PO SCH ×2 (22:00)
[2020-11-05] MEDS ORDERED: METHADONE HCL 40 MG DISPERSABLE TABLET PO SCH (06:00)
[2020-11-05] MEDS ORDERED: METHADONE HCL 10 MG TABLET PO SCH (06:00)
[2020-11-05] MEDS ORDERED: METHADONE HCL 10 MG TABLET ONE (06:05)
[2020-11-05] MEDS: METHADONE 80 MG, METHADONE 30 MG PO SCH (06:06)
[2020-11-05] MEDS: hydrOXYzine PAMOATE 25 MG CAPSULE (FP) PO SCH ×5 (06:06→21:48)
[2020-11-05] MEDS ORDERED: METHADONE HCL 40 MG DISPERSABLE TABLET ONE (06:06)
[2020-11-05] MEDS: LIDOCAINE 5% TOPICAL PATCH TP SCH (10:05)
[2020-11-05] MEDS: ARIPiprazole 2 MG TABLET PO SCH (10:05)
[2020-11-05] MEDS: AMOXICILLIN 500 MG CAPSULE (FP) PO SCH ×2 (10:05→21:46)
[2020-11-05] MEDS: ENTECAVIR 0.5 MG TABLET PO SCH (10:05)
[2020-11-05] MEDS: PRENATAL VITAMINS W/ FOLIC ACID TABLET (FP) PO SCH (10:05)
[2020-11-05] MEDS: PANTOPRAZOLE 40 MG TABLET PO SCH (10:05)
[2020-11-05] MEDS: NICOTINE 21 MG/24 HOURS TOPICAL PATCH TD SCH (10:06)
[2020-11-05] MEDS: NICOTINE POLACRILEX 2 MG GUM BUC PRN ×2 (10:06→23:24)
[2020-11-05] MEDS: BISMUTH SUBSALICYLATE 262 MG/15 ML BTL PO PRN (11:58)
[2020-11-05 15:51] LABS: HIV INTERPRETATION NEGATIVE (NEGATIVE)
[2020-11-05] MEDS ORDERED: MASKS NR ONE (17:23)
[2020-11-05] MEDS: THIAMINE HCL 100 MG TABLET (FP) PO SCH (21:46)
[2020-11-05] MEDS: LIDOCAINE PATCH REMOVAL MC SCH (22:09)
[2020-11-06] MEDS ORDERED: METHADONE HCL 40 MG DISPERSABLE TABLET ONE (03:23)
[2020-11-06] MEDS ORDERED: METHADONE HCL 10 MG TABLET ONE (03:23)
[2020-11-06] MEDS: hydrOXYzine PAMOATE 25 MG CAPSULE (FP) PO SCH ×5 (06:01→21:23)
[2020-11-06] MEDS: METHADONE 80 MG, METHADONE 30 MG PO SCH (06:01)
[2020-11-06] MEDS: LIDOCAINE 5% TOPICAL PATCH TP SCH (09:45)
[2020-11-06] MEDS: PRENATAL VITAMINS W/ FOLIC ACID TABLET (FP) PO SCH (09:45)
[2020-11-06] MEDS: PANTOPRAZOLE 40 MG TABLET PO SCH (09:45)
[2020-11-06] MEDS: NICOTINE 21 MG/24 HOURS TOPICAL PATCH TD SCH (09:46)
[2020-11-06] MEDS: ENTECAVIR 0.5 MG TABLET PO SCH (09:46)
[2020-11-06] MEDS: ARIPiprazole 2 MG TABLET PO SCH (09:49)
[2020-11-06] MEDS: TETRAHYDROZOLINE HCL EYE DROPS OU SCH ×2 (10:43→21:23)
[2020-11-06] MEDS: THIAMINE HCL 100 MG TABLET (FP) PO SCH (21:22)
[2020-11-06] MEDS: LIDOCAINE PATCH REMOVAL MC SCH (21:23)
[2020-11-06] MEDS: SUVOREXANT 10 MG TABLET PO PRN (21:24)
[2020-11-07] MEDS ORDERED: METHADONE HCL 10 MG TABLET ONE (03:21)
[2020-11-07] MEDS ORDERED: METHADONE HCL 40 MG DISPERSABLE TABLET ONE (03:21)
[2020-11-07] MEDS: METHADONE 80 MG, METHADONE 30 MG PO SCH (06:00)
[2020-11-07] MEDS: hydrOXYzine PAMOATE 25 MG CAPSULE (FP) PO SCH ×2 (06:00→10:07)
[2020-11-07] MEDS: ARIPiprazole 2 MG TABLET PO SCH (10:06)
[2020-11-07] MEDS: LIDOCAINE 5% TOPICAL PATCH TP SCH (10:07)
[2020-11-07] MEDS: PANTOPRAZOLE 40 MG TABLET PO SCH (10:07)
[2020-11-07] MEDS: NICOTINE 21 MG/24 HOURS TOPICAL PATCH TD SCH (10:07)
[2020-11-07] MEDS: PRENATAL VITAMINS W/ FOLIC ACID TABLET (FP) PO SCH (10:07)
[2020-11-07] MEDS: TETRAHYDROZOLINE HCL EYE DROPS OU SCH ×2 (10:07→21:36)
[2020-11-07] MEDS: ENTECAVIR 0.5 MG TABLET PO SCH (10:07)
[2020-11-07] MEDS ORDERED: MASKS NR ONE (10:10)
[2020-11-07] MEDS ORDERED: hydrOXYzine PAMOATE 25 MG CAPSULE (FP) PO PRN (12:46)
[2020-11-07] MEDS: NICOTINE POLACRILEX 2 MG GUM BUC PRN (17:30)
[2020-11-07] MEDS: THIAMINE HCL 100 MG TABLET (FP) PO SCH (21:36)
[2020-11-07] MEDS: SUVOREXANT 10 MG TABLET PO PRN (21:39)
[2020-11-07] MEDS: LIDOCAINE PATCH REMOVAL MC SCH (21:40)
[2020-11-08] MEDS ORDERED: METHADONE HCL 10 MG TABLET ONE (03:30)
[2020-11-08] MEDS ORDERED: METHADONE HCL 40 MG DISPERSABLE TABLET ONE (03:30)
[2020-11-08] MEDS: METHADONE 80 MG, METHADONE 30 MG PO SCH (06:01)
[2020-11-08] MEDS: NICOTINE POLACRILEX 2 MG GUM BUC PRN ×2 (09:41→20:26)
[2020-11-08] MEDS: PRENATAL VITAMINS W/ FOLIC ACID TABLET (FP) PO SCH (10:00)
[2020-11-08] MEDS: ENTECAVIR 0.5 MG TABLET PO SCH (10:01)
[2020-11-08] MEDS: LIDOCAINE 5% TOPICAL PATCH TP SCH (10:01)
[2020-11-08] MEDS: PANTOPRAZOLE 40 MG TABLET PO SCH (10:01)
[2020-11-08] MEDS: ARIPiprazole 2 MG TABLET PO SCH (10:01)
[2020-11-08] MEDS: TETRAHYDROZOLINE HCL EYE DROPS OU SCH ×2 (10:02→21:39)
[2020-11-08] MEDS: NICOTINE 21 MG/24 HOURS TOPICAL PATCH TD SCH (10:02)
[2020-11-08] MEDS ORDERED: PT OWN MED DRAWER 7, Y5N ONE (20:03)
[2020-11-08] MEDS: SUVOREXANT 10 MG TABLET PO PRN (21:39)
[2020-11-08] MEDS: THIAMINE HCL 100 MG TABLET (FP) PO SCH (21:39)
[2020-11-08] MEDS: LIDOCAINE PATCH REMOVAL MC SCH (23:38)
[2020-11-09] MEDS ORDERED: METHADONE HCL 10 MG TABLET ONE (03:24)
[2020-11-09] MEDS ORDERED: METHADONE HCL 40 MG DISPERSABLE TABLET ONE (03:24)
[2020-11-09] MEDS: METHADONE 80 MG, METHADONE 30 MG PO SCH (06:24)
[2020-11-09] MEDS: NICOTINE 21 MG/24 HOURS TOPICAL PATCH TD SCH (09:26)
[2020-11-09] MEDS: ARIPiprazole 2 MG TABLET PO SCH (09:26)
[2020-11-09] MEDS: PANTOPRAZOLE 40 MG TABLET PO SCH (09:26)
[2020-11-09] MEDS: PRENATAL VITAMINS W/ FOLIC ACID TABLET (FP) PO SCH (09:26)
[2020-11-09] MEDS: ENTECAVIR 0.5 MG TABLET PO SCH (09:26)
[2020-11-09] MEDS: TETRAHYDROZOLINE HCL EYE DROPS OU SCH ×2 (09:27→21:54)
[2020-11-09] MEDS: LIDOCAINE 5% TOPICAL PATCH TP SCH (09:28)
[2020-11-09] MEDS: NICOTINE POLACRILEX 2 MG GUM BUC PRN ×2 (09:28→17:30)
[2020-11-09] MEDS: LIDOCAINE PATCH REMOVAL MC SCH (21:51)
[2020-11-09] MEDS: THIAMINE HCL 100 MG TABLET (FP) PO SCH (21:51)
[2020-11-09] MEDS: SUVOREXANT 10 MG TABLET PO PRN (21:53)
[2020-11-09] MEDS ORDERED: PT OWN MED DRAWER 7, Y5N ONE (21:53)
[2020-11-10] MEDS ORDERED: METHADONE HCL 40 MG DISPERSABLE TABLET ONE (02:13)
[2020-11-10] MEDS ORDERED: METHADONE HCL 10 MG TABLET ONE (02:13)
[2020-11-10] MEDS: METHADONE 80 MG, METHADONE 30 MG PO SCH (06:06)
[2020-11-10] MEDS: ARIPiprazole 2 MG TABLET PO SCH (10:23)
[2020-11-10] MEDS: PRENATAL VITAMINS W/ FOLIC ACID TABLET (FP) PO SCH (10:23)
[2020-11-10] MEDS: NICOTINE 21 MG/24 HOURS TOPICAL PATCH TD SCH (10:23)
[2020-11-10] MEDS: PANTOPRAZOLE 40 MG TABLET PO SCH (10:23)
[2020-11-10] MEDS: ENTECAVIR 0.5 MG TABLET PO SCH (10:24)
[2020-11-10] MEDS: TETRAHYDROZOLINE HCL EYE DROPS OU SCH ×2 (10:24→21:28)
[2020-11-10] MEDS: LIDOCAINE 5% TOPICAL PATCH TP SCH (10:24)
[2020-11-10] MEDS: BISMUTH SUBSALICYLATE 262 MG/15 ML BTL PO PRN (15:41)
[2020-11-10] MEDS: THIAMINE HCL 100 MG TABLET (FP) PO SCH (21:27)
[2020-11-10] MEDS: LIDOCAINE PATCH REMOVAL MC SCH (21:28)
[2020-11-10] MEDS: SUVOREXANT 10 MG TABLET PO PRN (21:29)
[2020-11-11] MEDS ORDERED: METHADONE HCL 10 MG TABLET ONE (03:18)
[2020-11-11] MEDS ORDERED: METHADONE HCL 40 MG DISPERSABLE TABLET ONE (03:19)
[2020-11-11] MEDS: METHADONE 80 MG, METHADONE 30 MG PO SCH (06:00)
[2020-11-11] MEDS ORDERED: PT OWN MED DRAWER 7, Y5N ONE ×2 (08:56→18:32)
[2020-11-11] MEDS: ARIPiprazole 2 MG TABLET PO SCH (10:04)
[2020-11-11] MEDS: PANTOPRAZOLE 40 MG TABLET PO SCH (10:04)
[2020-11-11] MEDS: ENTECAVIR 0.5 MG TABLET PO SCH (10:04)
[2020-11-11] MEDS: LIDOCAINE 5% TOPICAL PATCH TP SCH (10:05)
[2020-11-11] MEDS: NICOTINE 21 MG/24 HOURS TOPICAL PATCH TD SCH (10:06)
[2020-11-11] MEDS: TETRAHYDROZOLINE HCL EYE DROPS OU SCH ×2 (10:06→21:29)
[2020-11-11] MEDS: NICOTINE POLACRILEX 2 MG GUM BUC PRN (10:06)
[2020-11-11] MEDS: PRENATAL VITAMINS W/ FOLIC ACID TABLET (FP) PO SCH (10:06)
[2020-11-11] MEDS: THIAMINE HCL 100 MG TABLET (FP) PO SCH (21:29)
[2020-11-11] MEDS: SUVOREXANT 10 MG TABLET PO PRN (21:29)
[2020-11-11] MEDS: LIDOCAINE PATCH REMOVAL MC SCH (22:34)
[2020-11-12] MEDS ORDERED: METHADONE HCL 40 MG DISPERSABLE TABLET ONE (06:18)
[2020-11-12] MEDS ORDERED: METHADONE HCL 10 MG TABLET ONE (06:18)
[2020-11-12] MEDS: METHADONE 80 MG, METHADONE 30 MG PO SCH (06:19)
[2020-11-12] MEDS ORDERED: PT OWN MED DRAWER 7, Y5N ONE ×2 (08:19→18:12)
[2020-11-12] MEDS: PRENATAL VITAMINS W/ FOLIC ACID TABLET (FP) PO SCH (09:57)
[2020-11-12] MEDS: TETRAHYDROZOLINE HCL EYE DROPS OU SCH ×2 (09:57→21:29)
[2020-11-12] MEDS: ENTECAVIR 0.5 MG TABLET PO SCH (09:58)
[2020-11-12] MEDS: ARIPiprazole 2 MG TABLET PO SCH (09:58)
[2020-11-12] MEDS: PANTOPRAZOLE 40 MG TABLET PO SCH (09:58)
[2020-11-12] MEDS: LIDOCAINE 5% TOPICAL PATCH TP SCH (09:59)
[2020-11-12] MEDS: NICOTINE POLACRILEX 2 MG GUM BUC PRN (09:59)
[2020-11-12] MEDS: NICOTINE 21 MG/24 HOURS TOPICAL PATCH TD SCH (09:59)
[2020-11-12] MEDS: THIAMINE HCL 100 MG TABLET (FP) PO SCH (21:29)
[2020-11-12] MEDS: SUVOREXANT 10 MG TABLET PO PRN (21:29)
[2020-11-12] MEDS: LIDOCAINE PATCH REMOVAL MC SCH (22:03)
[2020-11-13] MEDS ORDERED: METHADONE HCL 10 MG TABLET ONE (03:24)
[2020-11-13] MEDS ORDERED: METHADONE HCL 40 MG DISPERSABLE TABLET ONE (03:24)
[2020-11-13] MEDS: METHADONE 80 MG, METHADONE 30 MG PO SCH (06:04)
[2020-11-13] MEDS: BISMUTH SUBSALICYLATE 262 MG/15 ML BTL PO PRN ×2 (07:52→13:48)
[2020-11-13] MEDS: PRENATAL VITAMINS W/ FOLIC ACID TABLET (FP) PO SCH (10:06)
[2020-11-13] MEDS: PANTOPRAZOLE 40 MG TABLET PO SCH (10:06)
[2020-11-13] MEDS: ENTECAVIR 0.5 MG TABLET PO SCH (10:06)
[2020-11-13] MEDS: ARIPiprazole 2 MG TABLET PO SCH (10:06)
[2020-11-13] MEDS: NICOTINE 21 MG/24 HOURS TOPICAL PATCH TD SCH (10:07)
[2020-11-13] MEDS: LIDOCAINE 5% TOPICAL PATCH TP SCH (10:07)
[2020-11-13] MEDS ORDERED: TETRAHYDROZOLINE HCL EYE DROPS OU PRN (10:27)
[2020-11-13] MEDS ORDERED: ARTIFICIAL TEARS (POLYVINYL ALCOHOL) OPTH DROPS OU PRN (10:29)
[2020-11-13] MEDS: THIAMINE HCL 100 MG TABLET (FP) PO SCH (21:20)
[2020-11-13] MEDS: LIDOCAINE PATCH REMOVAL MC SCH (21:22)
[2020-11-13] MEDS: SUVOREXANT 10 MG TABLET PO PRN (21:22)
[2020-11-14] MEDS ORDERED: METHADONE HCL 10 MG TABLET ONE (03:47)
[2020-11-14] MEDS ORDERED: METHADONE HCL 40 MG DISPERSABLE TABLET ONE (03:48)
[2020-11-14] MEDS: METHADONE 80 MG, METHADONE 30 MG PO SCH (06:10)
[2020-11-14] MEDS: PRENATAL VITAMINS W/ FOLIC ACID TABLET (FP) PO SCH (10:08)
[2020-11-14] MEDS: ENTECAVIR 0.5 MG TABLET PO SCH (10:09)
[2020-11-14] MEDS: PANTOPRAZOLE 40 MG TABLET PO SCH (10:09)
[2020-11-14] MEDS: LIDOCAINE 5% TOPICAL PATCH TP SCH (10:09)
[2020-11-14] MEDS: ARIPiprazole 2 MG TABLET PO SCH (10:09)
[2020-11-14] MEDS: NICOTINE 21 MG/24 HOURS TOPICAL PATCH TD SCH (10:11)
[2020-11-14] MEDS: NICOTINE POLACRILEX 2 MG GUM BUC PRN ×2 (12:56→16:14)
[2020-11-14] MEDS ORDERED: PT OWN MED DRAWER 7, Y5N ONE ×3 (20:03→21:21)
[2020-11-14] MEDS: BISMUTH SUBSALICYLATE 262 MG/15 ML BTL PO PRN (20:07)
[2020-11-14] MEDS: LIDOCAINE PATCH REMOVAL MC SCH (21:20)
[2020-11-14] MEDS: SUVOREXANT 10 MG TABLET PO PRN (21:20)
[2020-11-14] MEDS: THIAMINE HCL 100 MG TABLET (FP) PO SCH (21:20)
[2020-11-15] MEDS ORDERED: METHADONE HCL 10 MG TABLET ONE (04:39)
[2020-11-15] MEDS ORDERED: METHADONE HCL 40 MG DISPERSABLE TABLET ONE (04:39)
[2020-11-15] MEDS: METHADONE 80 MG, METHADONE 30 MG PO SCH (06:01)
[2020-11-15 07:07] VITALS: BP 151/98; PULSE 75; TEMP 96.9
[2020-11-15] MEDS: ARIPiprazole 2 MG TABLET PO SCH (09:08)
[2020-11-15] MEDS: ENTECAVIR 0.5 MG TABLET PO SCH (09:08)
[2020-11-15] MEDS: PRENATAL VITAMINS W/ FOLIC ACID TABLET (FP) PO SCH (09:08)
[2020-11-15] MEDS: LIDOCAINE 5% TOPICAL PATCH TP SCH (09:10)
[2020-11-15] MEDS: PANTOPRAZOLE 40 MG TABLET PO SCH (09:10)
[2020-11-15] MEDS: NICOTINE POLACRILEX 2 MG GUM BUC PRN (09:11)
[2020-11-15] MEDS: NICOTINE 21 MG/24 HOURS TOPICAL PATCH TD SCH (09:11)
== END 2020-11-15 09:45 | disposition home or self-care (01) | DRG 895 ==
LOC: YASAS 16:09 → Y5N 16:12
PROVIDERS: ADMIT Allergy & Immunology; ATTEND Allergy & Immunology
PROC: HZ42ZZZ Group Counseling for Substance Abuse Treatment, Cognitive-Behavioral (ICD-10-PCS; principal; 2020-11-04)
DX: F11.20 Opioid dependence, uncomplicated (principal); F13.20 Sedative, hypnotic or anxiolytic dependence, uncomplicated; K50.90 Crohn's disease, unspecified, without complications; F17.210 Nicotine dependence, cigarettes, uncomplicated; F41.9 Anxiety disorder, unspecified; F32.9 Major depressive disorder, single episode, unspecified; D50.9 Iron deficiency anemia, unspecified; G47.00 Insomnia, unspecified; K21.9 Gastro-esophageal reflux disease without esophagitis; B18.2 Chronic viral hepatitis C; B35.3 Tinea pedis; M19.90 Unspecified osteoarthritis, unspecified site; Z98.890 Other specified postprocedural states
CPT/HCPCS: 36415; 87389

== ENCOUNTER 2021-01-20 10:29 | Inpatient (IN) | payer OTHER ==
[2021-01-20 11:14] VITALS: BMI 19.5
[2021-01-20] MEDS ORDERED: MAG HYDROX/AL HYDROX/SIMETH 30 ML UNIT-DOSE CUP PO PRN (13:37)
[2021-01-20] MEDS ORDERED: NICOTINE 10 MG CARTRIDGE (INHALER) IH PRN (13:37)
[2021-01-20] MEDS ORDERED: MAGNESIUM HYDROX 2400MG/30ML ORAL SUSPENSION 30 ML CUP PO PRN (13:37)
[2021-01-20] MEDS ORDERED: ACETAMINOPHEN 325 MG TABLET (FP) PO PRN (13:37)
[2021-01-20] MEDS ORDERED: METHOCARBAMOL 500 MG TABLET PO PRN (13:37)
[2021-01-20] MEDS ORDERED: MAGNESIUM CITRATE 300 ML BOTTLE PO PRN (13:37)
[2021-01-20] MEDS ORDERED: IBUPROFEN 400 MG TABLET (FP) PO PRN (13:37)
[2021-01-20] MEDS ORDERED: MENTHOL/PHENOL 1 EACH UD MM PRN (13:37)
[2021-01-20] MEDS ORDERED: ONDANSETRON *ODT* 4 MG TABLET SL PRN (13:37)
[2021-01-20] MEDS: hydrOXYzine PAMOATE 25 MG CAPSULE (FP) PO SCH ×3 (16:59→22:23)
[2021-01-20] MEDS: diazePAM 5 MG TABLET PO SCH ×2 (19:01→22:23)
[2021-01-20] MEDS: NICOTINE POLACRILEX 2 MG GUM BUC PRN ×2 (19:04→22:52)
[2021-01-20] MEDS ORDERED: MELATONIN 5 MG TABLETS PO SCH (22:00)
[2021-01-20] MEDS: THIAMINE HCL 100 MG TABLET (FP) PO SCH (22:23)
[2021-01-21] MEDS: diazePAM 5 MG TABLET PO PRN ×2 (02:58→14:45)
[2021-01-21] MEDS ORDERED: methaDONE HCL 10 MG TABLET ONE (04:12)
[2021-01-21] MEDS ORDERED: methaDONE HCL 40 MG DISPERSABLE TABLET ONE (04:13)
[2021-01-21] MEDS: diazePAM 5 MG TABLET PO SCH ×4 (05:17→22:46)
[2021-01-21] MEDS: hydrOXYzine PAMOATE 25 MG CAPSULE (FP) PO SCH ×2 (05:18→10:57)
[2021-01-21] MEDS ORDERED: methaDONE HCL 40 MG DISPERSABLE TABLET PO SCH (06:00)
[2021-01-21] MEDS: NICOTINE POLACRILEX 2 MG GUM BUC PRN ×4 (06:04→18:08)
[2021-01-21] MEDS: PRENATAL VITAMINS W/ FOLIC ACID TABLET (FP) PO SCH (10:53)
[2021-01-21] MEDS: predniSONE 20 MG TABLET (UD) PO SCH (10:55)
[2021-01-21 11:34] LABS: HEMATOCRIT 31.9 % (35.4-49); HEMOGLOBIN 10.5 GM/dL (11.7-16.9); MCH 26.2 pg (25.7-33.7); MCHC 32.8 g/dl (32.0-35.9); MEAN CELL VOLUME 79.7 fl (80-96); MEAN PLT VOLUME 9.4 fl (7.5-11.1); PLATELET COUNT 261 10^3/uL (134-434); RBC 4.01 M/mm3 (4.00-5.60); RDW 19.3 % (11.9-15.9)
[2021-01-21 11:42] LABS: CALCIUM 8.3 mg/dL (8.5-10.1)
[2021-01-21 11:43] LABS: ALBUMIN 3.2 g/dl (3.4-5.0); BLOOD UREA NITROGEN 8.7 mg/dL (7-18)
[2021-01-21 11:46] LABS: CREATININE 0.7 mg/dL (0.55-1.3)
[2021-01-21 11:47] LABS: BILIRUBIN,TOTAL 0.3 mg/dL (0.2-1)
[2021-01-21 11:48] LABS: TOT PROT 6.5 g/dl (6.4-8.2)
[2021-01-21] MEDS: ACETAMINOPHEN 325 MG TABLET (FP) PO PRN ×2 (14:46→22:47)
[2021-01-21] MEDS: SUVOREXANT 10 MG TABLET PO PRN (22:46)
[2021-01-21] MEDS: THIAMINE HCL 100 MG TABLET (FP) PO SCH (22:46)
[2021-01-22] MEDS: diazePAM 5 MG TABLET PO PRN ×2 (04:24→18:03)
[2021-01-22] MEDS ORDERED: methaDONE HCL 10 MG TABLET ONE (04:51)
[2021-01-22] MEDS ORDERED: methaDONE HCL 40 MG DISPERSABLE TABLET ONE (04:52)
[2021-01-22] MEDS ORDERED: MASKS NR ONE (06:22)
[2021-01-22] MEDS: diazePAM 5 MG TABLET PO SCH ×3 (06:31→22:07)
[2021-01-22] MEDS: NICOTINE POLACRILEX 2 MG GUM BUC PRN ×3 (07:22→22:55)
[2021-01-22] MEDS: PRENATAL VITAMINS W/ FOLIC ACID TABLET (FP) PO SCH (10:07)
[2021-01-22] MEDS: predniSONE 20 MG TABLET (UD) PO SCH (10:07)
[2021-01-22] MEDS ORDERED: LIDOCAINE 5% TOPICAL PATCH TP ONE (10:39)
[2021-01-22] MEDS: hydrOXYzine PAMOATE 25 MG CAPSULE (FP) PO PRN ×2 (18:03→22:07)
[2021-01-22] MEDS: THIAMINE HCL 100 MG TABLET (FP) PO SCH (22:07)
[2021-01-22] MEDS: SUVOREXANT 10 MG TABLET PO PRN (22:08)
[2021-01-22] MEDS: LIDOCAINE PATCH REMOVAL MC SCH (22:10)
[2021-01-22] MEDS: BISMUTH SUBSALICYLATE 524 MG/30 ML PO PRN (22:54)
[2021-01-23] MEDS ORDERED: methaDONE HCL 10 MG TABLET ONE (04:57)
[2021-01-23] MEDS ORDERED: methaDONE HCL 40 MG DISPERSABLE TABLET ONE (04:58)
[2021-01-23] MEDS: diazePAM 5 MG TABLET PO SCH ×2 (05:33→17:15)
[2021-01-23] MEDS: PRENATAL VITAMINS W/ FOLIC ACID TABLET (FP) PO SCH (10:14)
[2021-01-23] MEDS: LIDOCAINE 5% TOPICAL PATCH TP SCH (10:16)
[2021-01-23] MEDS: predniSONE 20 MG TABLET (UD) PO SCH (10:17)
[2021-01-23] MEDS: hydrOXYzine PAMOATE 25 MG CAPSULE (FP) PO PRN (15:39)
[2021-01-23] MEDS: NICOTINE POLACRILEX 2 MG GUM BUC PRN (15:40)
[2021-01-23] MEDS: BISMUTH SUBSALICYLATE 524 MG/30 ML PO PRN ×3 (16:48→22:16)
[2021-01-23] MEDS: SUVOREXANT 10 MG TABLET PO PRN (22:12)
[2021-01-23] MEDS: THIAMINE HCL 100 MG TABLET (FP) PO SCH (22:13)
[2021-01-23] MEDS: LIDOCAINE PATCH REMOVAL MC SCH (22:13)
[2021-01-24] MEDS: BISMUTH SUBSALICYLATE 524 MG/30 ML PO PRN (00:59)
[2021-01-24] MEDS ORDERED: methaDONE HCL 40 MG DISPERSABLE TABLET ONE (04:22)
[2021-01-24] MEDS ORDERED: methaDONE HCL 10 MG TABLET ONE (04:22)
[2021-01-24] MEDS ORDERED: diazePAM 5 MG TABLET PO ONE (06:00)
[2021-01-24 09:07] VITALS: PULSE 75
[2021-01-24] MEDS ORDERED: predniSONE 10 MG TABLET (UD) PO SCH (10:00)
[2021-01-24] MEDS: PRENATAL VITAMINS W/ FOLIC ACID TABLET (FP) PO SCH (10:19)
[2021-01-24] MEDS: LIDOCAINE 5% TOPICAL PATCH TP SCH (10:20)
[2021-01-24] MEDS: NICOTINE POLACRILEX 2 MG GUM BUC PRN (12:36)
[2021-01-24 13:51] VITALS: BP 129/92; TEMP 96.9
== END 2021-01-24 15:05 | disposition other institution (70) | DRG 897 ==
LOC: YASAS 10:29 → Y3N 17:52
PROVIDERS: ADMIT Allergy & Immunology; ATTEND Allergy & Immunology
PROC: HZ2ZZZZ Detoxification Services for Substance Abuse Treatment (ICD-10-PCS; principal; 2021-01-20)
DX: F10.230 Alcohol dependence with withdrawal, uncomplicated (principal); F13.20 Sedative, hypnotic or anxiolytic dependence, uncomplicated; F11.20 Opioid dependence, uncomplicated; F14.20 Cocaine dependence, uncomplicated; F19.282 Other psychoactive substance dependence with psychoactive substance-induced sleep disorder; F19.280 Other psychoactive substance dependence with psychoactive substance-induced anxiety disorder; K50.90 Crohn's disease, unspecified, without complications; Z68.1 Body mass index [BMI] 19.9 or less, adult; F12.20 Cannabis dependence, uncomplicated; F17.210 Nicotine dependence, cigarettes, uncomplicated; F19.24 Other psychoactive substance dependence with psychoactive substance-induced mood disorder; D50.9 Iron deficiency anemia, unspecified; M17.0 Bilateral primary osteoarthritis of knee; M19.071 Primary osteoarthritis, right ankle and foot; M19.072 Primary osteoarthritis, left ankle and foot; Z86.19 Personal history of other infectious and parasitic diseases; R63.4 Abnormal weight loss; Z62.810 Personal history of physical and sexual abuse in childhood
CPT/HCPCS: 36415; 80053; 85027; 86780; C9803; U0003; U0005

== ENCOUNTER 2021-01-24 15:08 | Inpatient (IN) | payer OTHER ==
[2021-01-24] MEDS ORDERED: guaiFENesin 200 MG/10 ML 10 ML UNIT-DOSE CUPS PO PRN (16:09)
[2021-01-24] MEDS ORDERED: MAGNESIUM HYDROX 2400MG/30ML ORAL SUSPENSION 30 ML CUP PO PRN (16:09)
[2021-01-24] MEDS ORDERED: MAGNESIUM CITRATE 300 ML BOTTLE PO PRN (16:09)
[2021-01-24] MEDS ORDERED: LOPERAMIDE HCL 2 MG CAPSULE PO PRN (16:09)
[2021-01-24] MEDS ORDERED: ACETAMINOPHEN 325 MG TABLET (FP) PO PRN (16:09)
[2021-01-24] MEDS ORDERED: MENTHOL/PHENOL 1 EACH UD MM PRN (16:09)
[2021-01-24] MEDS ORDERED: P-EPHED 60MG/TRIPROLIDI 2.5MG TABLET PO PRN (16:09)
[2021-01-24] MEDS: hydrOXYzine PAMOATE 25 MG CAPSULE (FP) PO PRN (17:30)
[2021-01-24] MEDS ORDERED: PT OWN MED DRAWER 7, Y5N ONE (19:52)
[2021-01-24] MEDS: MELATONIN 5 MG TABLETS PO SCH (21:40)
[2021-01-24] MEDS: THIAMINE HCL 100 MG TABLET (FP) PO SCH (21:40)
[2021-01-24] MEDS: SUVOREXANT 10 MG TABLET PO PRN (22:35)
[2021-01-25] MEDS ORDERED: methaDONE HCL 40 MG DISPERSABLE TABLET PO SCH (06:00)
[2021-01-25] MEDS ORDERED: methaDONE HCL 40 MG DISPERSABLE TABLET ONE (06:39)
[2021-01-25] MEDS ORDERED: methaDONE HCL 10 MG TABLET ONE (06:39)
[2021-01-25] MEDS: NICOTINE 7 MG/24 HOURS TOPICAL PATCH TD SCH (10:46)
[2021-01-25] MEDS: PRENATAL VITAMINS W/ FOLIC ACID TABLET (FP) PO SCH (10:46)
[2021-01-25] MEDS: NICOTINE 10 MG CARTRIDGE (INHALER) IH PRN ×2 (10:46→17:47)
[2021-01-25] MEDS: predniSONE 10 MG TABLET (UD) PO SCH (10:47)
[2021-01-25] MEDS: hydrOXYzine PAMOATE 25 MG CAPSULE (FP) PO PRN (17:48)
[2021-01-25] MEDS: NICOTINE POLACRILEX 2 MG GUM BC PRN (18:02)
[2021-01-25] MEDS: THIAMINE HCL 100 MG TABLET (FP) PO SCH (21:34)
[2021-01-25] MEDS: MELATONIN 5 MG TABLETS PO SCH (21:35)
[2021-01-25] MEDS: SUVOREXANT 10 MG TABLET PO PRN (21:35)
[2021-01-26] MEDS ORDERED: methaDONE HCL 40 MG DISPERSABLE TABLET ONE (03:31)
[2021-01-26] MEDS ORDERED: methaDONE HCL 10 MG TABLET ONE (03:31)
[2021-01-26] MEDS: NICOTINE POLACRILEX 2 MG GUM BC PRN ×4 (07:35→22:01)
[2021-01-26] MEDS: PRENATAL VITAMINS W/ FOLIC ACID TABLET (FP) PO SCH (09:54)
[2021-01-26] MEDS: predniSONE 10 MG TABLET (UD) PO SCH (09:55)
[2021-01-26] MEDS: NICOTINE 7 MG/24 HOURS TOPICAL PATCH TD SCH (09:55)
[2021-01-26] MEDS: LIDOCAINE 5% TOPICAL PATCH TP SCH (11:49)
[2021-01-26] MEDS: hydrOXYzine PAMOATE 25 MG CAPSULE (FP) PO PRN (14:23)
[2021-01-26] MEDS: MAG HYDROX/AL HYDROX/SIMETH 30 ML UNIT-DOSE CUP PO PRN (16:00)
[2021-01-26] MEDS: THIAMINE HCL 100 MG TABLET (FP) PO SCH (21:59)
[2021-01-26] MEDS: SUVOREXANT 10 MG TABLET PO PRN (22:00)
[2021-01-26] MEDS: LIDOCAINE PATCH REMOVAL MC SCH (22:00)
[2021-01-26] MEDS ORDERED: LIDOCAINE PATCH REMOVAL MC SCH (22:00)
[2021-01-26] MEDS: NICOTINE 10 MG CARTRIDGE (INHALER) IH PRN (22:01)
[2021-01-26] MEDS: MELATONIN 5 MG TABLETS PO SCH (22:01)
[2021-01-27] MEDS ORDERED: methaDONE HCL 40 MG DISPERSABLE TABLET ONE (04:06)
[2021-01-27] MEDS ORDERED: methaDONE HCL 10 MG TABLET ONE (04:06)
[2021-01-27] MEDS ORDERED: BISMUTH SUBSALICYLATE 262 MG/15 ML BTL PO SCH (10:00)
[2021-01-27] MEDS: predniSONE 20 MG TABLET (UD) PO SCH (10:01)
[2021-01-27] MEDS: PRENATAL VITAMINS W/ FOLIC ACID TABLET (FP) PO SCH (10:02)
[2021-01-27] MEDS: NICOTINE 7 MG/24 HOURS TOPICAL PATCH TD SCH (10:03)
[2021-01-27] MEDS: LIDOCAINE 5% TOPICAL PATCH TP SCH (10:03)
[2021-01-27] MEDS: IBUPROFEN 400 MG TABLET (FP) PO PRN ×2 (10:04→17:48)
[2021-01-27] MEDS: NICOTINE POLACRILEX 2 MG GUM BC PRN ×4 (10:05→21:30)
[2021-01-27] MEDS: NICOTINE 10 MG CARTRIDGE (INHALER) IH PRN ×2 (10:05→14:58)
[2021-01-27] MEDS: MELATONIN 5 MG TABLETS PO SCH (21:25)
[2021-01-27] MEDS: SUVOREXANT 10 MG TABLET PO PRN (21:26)
[2021-01-27] MEDS: LIDOCAINE PATCH REMOVAL MC SCH (21:27)
[2021-01-27] MEDS: THIAMINE HCL 100 MG TABLET (FP) PO SCH (23:40)
[2021-01-28] MEDS ORDERED: methaDONE HCL 40 MG DISPERSABLE TABLET ONE (03:04)
[2021-01-28] MEDS ORDERED: methaDONE HCL 10 MG TABLET ONE (03:04)
[2021-01-28] MEDS ORDERED: PT OWN MED DRAWER 7, Y5N ONE (08:33)
[2021-01-28] MEDS: predniSONE 20 MG TABLET (UD) PO SCH (10:02)
[2021-01-28] MEDS: NICOTINE 7 MG/24 HOURS TOPICAL PATCH TD SCH (10:02)
[2021-01-28] MEDS: PRENATAL VITAMINS W/ FOLIC ACID TABLET (FP) PO SCH (10:02)
[2021-01-28] MEDS: LIDOCAINE 5% TOPICAL PATCH TP SCH (10:02)
[2021-01-28] MEDS: NICOTINE 10 MG CARTRIDGE (INHALER) IH PRN ×2 (10:03→21:34)
[2021-01-28] MEDS: NICOTINE POLACRILEX 2 MG GUM BC PRN ×2 (14:41→21:35)
[2021-01-28] MEDS: IBUPROFEN 400 MG TABLET (FP) PO PRN (15:19)
[2021-01-28] MEDS: MAG HYDROX/AL HYDROX/SIMETH 30 ML UNIT-DOSE CUP PO PRN (18:25)
[2021-01-28] MEDS: THIAMINE HCL 100 MG TABLET (FP) PO SCH (21:32)
[2021-01-28] MEDS: MELATONIN 5 MG TABLETS PO SCH (21:32)
[2021-01-28] MEDS: LIDOCAINE PATCH REMOVAL MC SCH (21:33)
[2021-01-28] MEDS: SUVOREXANT 10 MG TABLET PO PRN (21:33)
[2021-01-28] MEDS: METHYL SALICYLATE/MENTHOL OINT 30 GM TUBE TP SCH (22:09)
[2021-01-29] MEDS ORDERED: methaDONE HCL 40 MG DISPERSABLE TABLET ONE (02:21)
[2021-01-29] MEDS ORDERED: methaDONE HCL 10 MG TABLET ONE (02:21)
[2021-01-29] MEDS ORDERED: PT OWN MED DRAWER 7, Y5N ONE (02:33)
[2021-01-29] MEDS: NICOTINE 7 MG/24 HOURS TOPICAL PATCH TD SCH (10:19)
[2021-01-29] MEDS: PRENATAL VITAMINS W/ FOLIC ACID TABLET (FP) PO SCH (10:19)
[2021-01-29] MEDS: predniSONE 10 MG TABLET (UD) PO SCH (10:20)
[2021-01-29] MEDS: LIDOCAINE 5% TOPICAL PATCH TP SCH (10:20)
[2021-01-29] MEDS: MAG HYDROX/AL HYDROX/SIMETH 30 ML UNIT-DOSE CUP PO PRN ×2 (10:21→16:21)
[2021-01-29] MEDS: METHYL SALICYLATE/MENTHOL OINT 30 GM TUBE TP SCH ×2 (10:22→22:39)
[2021-01-29] MEDS: NICOTINE POLACRILEX 2 MG GUM BC PRN (16:21)
[2021-01-29] MEDS: THIAMINE HCL 100 MG TABLET (FP) PO SCH (21:32)
[2021-01-29] MEDS: MELATONIN 5 MG TABLETS PO SCH (21:32)
[2021-01-29] MEDS: LIDOCAINE PATCH REMOVAL MC SCH (21:33)
[2021-01-29] MEDS: SUVOREXANT 10 MG TABLET PO PRN (21:36)
[2021-01-29] MEDS ORDERED: DOCUSATE SODIUM 100 MG CAPSULE (FP) PO SCH (22:00)
[2021-01-29] MEDS: DOCUSATE SODIUM 100 MG CAPSULE (FP) PO SCH (22:40)
[2021-01-30] MEDS ORDERED: methaDONE HCL 40 MG DISPERSABLE TABLET ONE (05:01)
[2021-01-30] MEDS ORDERED: methaDONE HCL 10 MG TABLET ONE (05:01)
[2021-01-30] MEDS: MAG HYDROX/AL HYDROX/SIMETH 30 ML UNIT-DOSE CUP PO PRN (06:14)
[2021-01-30] MEDS: LIDOCAINE 5% TOPICAL PATCH TP SCH (09:54)
[2021-01-30] MEDS: predniSONE 10 MG TABLET (UD) PO SCH (09:55)
[2021-01-30] MEDS: NICOTINE 7 MG/24 HOURS TOPICAL PATCH TD SCH (09:56)
[2021-01-30] MEDS: PRENATAL VITAMINS W/ FOLIC ACID TABLET (FP) PO SCH (09:56)
[2021-01-30] MEDS: METHYL SALICYLATE/MENTHOL OINT 30 GM TUBE TP SCH ×2 (09:56→21:18)
[2021-01-30] MEDS: NICOTINE 10 MG CARTRIDGE (INHALER) IH PRN ×3 (09:57→20:06)
[2021-01-30] MEDS: NICOTINE POLACRILEX 2 MG GUM BC PRN ×4 (09:57→23:30)
[2021-01-30] MEDS: LIDOCAINE PATCH REMOVAL MC SCH (21:16)
[2021-01-30] MEDS: DOCUSATE SODIUM 100 MG CAPSULE (FP) PO SCH (21:16)
[2021-01-30] MEDS: MELATONIN 5 MG TABLETS PO SCH (21:16)
[2021-01-30] MEDS: THIAMINE HCL 100 MG TABLET (FP) PO SCH (21:17)
[2021-01-30] MEDS ORDERED: traZODone HCL 50 MG TABLET (FP) PO ONE (22:55)
[2021-01-31] MEDS ORDERED: methaDONE HCL 10 MG TABLET ONE (03:53)
[2021-01-31] MEDS ORDERED: methaDONE HCL 40 MG DISPERSABLE TABLET ONE (03:53)
[2021-01-31] MEDS: NICOTINE POLACRILEX 2 MG GUM BC PRN ×4 (06:03→21:19)
[2021-01-31] MEDS ORDERED: PT OWN MED DRAWER 7, Y5N ONE ×2 (09:56→21:22)
[2021-01-31] MEDS: PRENATAL VITAMINS W/ FOLIC ACID TABLET (FP) PO SCH (09:58)
[2021-01-31] MEDS: NICOTINE 7 MG/24 HOURS TOPICAL PATCH TD SCH (09:58)
[2021-01-31] MEDS: METHYL SALICYLATE/MENTHOL OINT 30 GM TUBE TP SCH ×2 (09:59→21:25)
[2021-01-31] MEDS: predniSONE 5 MG TABLET (UD) PO SCH (09:59)
[2021-01-31] MEDS: NICOTINE 10 MG CARTRIDGE (INHALER) IH PRN ×3 (09:59→21:22)
[2021-01-31] MEDS: LIDOCAINE 5% TOPICAL PATCH TP SCH (10:00)
[2021-01-31] MEDS: MELATONIN 5 MG TABLETS PO SCH (21:18)
[2021-01-31] MEDS: DOCUSATE SODIUM 100 MG CAPSULE (FP) PO SCH (21:18)
[2021-01-31] MEDS: THIAMINE HCL 100 MG TABLET (FP) PO SCH (21:18)
[2021-01-31] MEDS: LIDOCAINE PATCH REMOVAL MC SCH (21:19)
[2021-01-31] MEDS: SUVOREXANT 10 MG TABLET PO PRN (21:21)
[2021-02-01] MEDS ORDERED: methaDONE HCL 10 MG TABLET ONE (06:16)
[2021-02-01] MEDS ORDERED: methaDONE HCL 40 MG DISPERSABLE TABLET ONE (06:17)
[2021-02-01] MEDS: METHYL SALICYLATE/MENTHOL OINT 30 GM TUBE TP SCH ×2 (10:02→21:35)
[2021-02-01] MEDS: PRENATAL VITAMINS W/ FOLIC ACID TABLET (FP) PO SCH (10:02)
[2021-02-01] MEDS: predniSONE 5 MG TABLET (UD) PO SCH (10:02)
[2021-02-01] MEDS: LIDOCAINE 5% TOPICAL PATCH TP SCH (10:02)
[2021-02-01] MEDS: NICOTINE 7 MG/24 HOURS TOPICAL PATCH TD SCH (10:02)
[2021-02-01] MEDS: NICOTINE 10 MG CARTRIDGE (INHALER) IH PRN ×2 (10:03→21:37)
[2021-02-01] MEDS: NICOTINE POLACRILEX 2 MG GUM BC PRN ×3 (10:04→21:36)
[2021-02-01] MEDS: DOCUSATE SODIUM 100 MG CAPSULE (FP) PO SCH (21:35)
[2021-02-01] MEDS: SUVOREXANT 10 MG TABLET PO PRN (21:35)
[2021-02-01] MEDS: LIDOCAINE PATCH REMOVAL MC SCH (21:36)
[2021-02-01] MEDS: MELATONIN 5 MG TABLETS PO SCH (21:36)
[2021-02-01] MEDS: THIAMINE HCL 100 MG TABLET (FP) PO SCH (21:36)
[2021-02-02] MEDS ORDERED: methaDONE HCL 10 MG TABLET ONE (06:11)
[2021-02-02] MEDS ORDERED: methaDONE HCL 40 MG DISPERSABLE TABLET ONE (06:12)
[2021-02-02] MEDS: NICOTINE 10 MG CARTRIDGE (INHALER) IH PRN ×3 (06:14→18:38)
[2021-02-02] MEDS: MAG HYDROX/AL HYDROX/SIMETH 30 ML UNIT-DOSE CUP PO PRN (07:28)
[2021-02-02] MEDS: LIDOCAINE 5% TOPICAL PATCH TP SCH (09:50)
[2021-02-02] MEDS: BISMUTH SUBSALICYLATE 262 MG/15 ML BTL PO PRN (09:51)
[2021-02-02] MEDS: METHYL SALICYLATE/MENTHOL OINT 30 GM TUBE TP SCH ×2 (09:51→22:07)
[2021-02-02] MEDS: PRENATAL VITAMINS W/ FOLIC ACID TABLET (FP) PO SCH (09:52)
[2021-02-02] MEDS: NICOTINE 7 MG/24 HOURS TOPICAL PATCH TD SCH (09:52)
[2021-02-02] MEDS ORDERED: predniSONE 5 MG TABLET (UD) PO ONE (10:00)
[2021-02-02] MEDS: NICOTINE POLACRILEX 2 MG GUM BC PRN (18:39)
[2021-02-02] MEDS: hydrOXYzine PAMOATE 25 MG CAPSULE (FP) PO PRN (22:04)
[2021-02-02] MEDS: DOCUSATE SODIUM 100 MG CAPSULE (FP) PO SCH (22:04)
[2021-02-02] MEDS: THIAMINE HCL 100 MG TABLET (FP) PO SCH (22:04)
[2021-02-02] MEDS: SUVOREXANT 10 MG TABLET PO PRN (22:05)
[2021-02-02] MEDS: MELATONIN 5 MG TABLETS PO SCH (22:06)
[2021-02-02] MEDS: LIDOCAINE PATCH REMOVAL MC SCH (22:06)
[2021-02-03] MEDS ORDERED: methaDONE HCL 40 MG DISPERSABLE TABLET ONE (04:02)
[2021-02-03] MEDS ORDERED: methaDONE HCL 10 MG TABLET ONE (04:02)
[2021-02-03] MEDS: NICOTINE 10 MG CARTRIDGE (INHALER) IH PRN ×2 (06:11→18:59)
[2021-02-03] MEDS: NICOTINE POLACRILEX 2 MG GUM BC PRN ×3 (06:12→19:00)
[2021-02-03] MEDS: LIDOCAINE 5% TOPICAL PATCH TP SCH (09:37)
[2021-02-03] MEDS: PRENATAL VITAMINS W/ FOLIC ACID TABLET (FP) PO SCH (09:37)
[2021-02-03] MEDS: NICOTINE 7 MG/24 HOURS TOPICAL PATCH TD SCH (09:37)
[2021-02-03] MEDS: MAG HYDROX/AL HYDROX/SIMETH 30 ML UNIT-DOSE CUP PO PRN ×2 (09:37→17:49)
[2021-02-03] MEDS: METHYL SALICYLATE/MENTHOL OINT 30 GM TUBE TP SCH ×2 (09:39→23:24)
[2021-02-03] MEDS ORDERED: predniSONE 2.5 MG TABLET PO SCH (10:00)
[2021-02-03] MEDS ORDERED: predniSONE 5 MG TABLET (UD) PO SCH (10:01)
[2021-02-03] MEDS: amLODIPine BESYLATE 2.5 MG TABLET (FP) PO SCH (13:24)
[2021-02-03] MEDS ORDERED: predniSONE 5 MG TABLET (UD) PO ONE (14:00)
[2021-02-03] MEDS: BISMUTH SUBSALICYLATE 262 MG/15 ML BTL PO PRN (15:13)
[2021-02-03] MEDS: THIAMINE HCL 100 MG TABLET (FP) PO SCH (21:11)
[2021-02-03] MEDS: MELATONIN 5 MG TABLETS PO SCH (21:11)
[2021-02-03] MEDS: DOCUSATE SODIUM 100 MG CAPSULE (FP) PO SCH (21:11)
[2021-02-03] MEDS: IBUPROFEN 400 MG TABLET (FP) PO PRN (21:14)
[2021-02-03] MEDS ORDERED: PT OWN MED DRAWER 7, Y5N ONE (21:16)
[2021-02-03] MEDS: SUVOREXANT 10 MG TABLET PO PRN (21:17)
[2021-02-03] MEDS: LIDOCAINE PATCH REMOVAL MC SCH (23:25)
[2021-02-04] MEDS: MAG HYDROX/AL HYDROX/SIMETH 30 ML UNIT-DOSE CUP PO PRN ×2 (03:32→11:51)
[2021-02-04] MEDS: IBUPROFEN 400 MG TABLET (FP) PO PRN (03:39)
[2021-02-04] MEDS ORDERED: methaDONE HCL 40 MG DISPERSABLE TABLET ONE (04:13)
[2021-02-04] MEDS ORDERED: methaDONE HCL 10 MG TABLET ONE (04:13)
[2021-02-04 07:24] VITALS: BP 147/89; PULSE 76; TEMP 97.1
[2021-02-04] MEDS: amLODIPine BESYLATE 2.5 MG TABLET (FP) PO SCH (09:37)
[2021-02-04] MEDS: PRENATAL VITAMINS W/ FOLIC ACID TABLET (FP) PO SCH (09:37)
[2021-02-04] MEDS: LIDOCAINE 5% TOPICAL PATCH TP SCH (09:37)
[2021-02-04] MEDS: NICOTINE 7 MG/24 HOURS TOPICAL PATCH TD SCH (09:38)
[2021-02-04] MEDS: NICOTINE 10 MG CARTRIDGE (INHALER) IH PRN (09:38)
[2021-02-04] MEDS: METHYL SALICYLATE/MENTHOL OINT 30 GM TUBE TP SCH (09:38)
[2021-02-04] MEDS ORDERED: predniSONE 5 MG TABLET (UD) PO SCH (10:01)
[2021-02-04] MEDS ORDERED: PT OWN MED DRAWER 7, Y5N ONE (10:50)
== END 2021-02-04 13:35 | disposition home or self-care (01) | DRG 895 ==
LOC: YASAS 15:08 → Y5N 15:11
PROVIDERS: ADMIT Allergy & Immunology; ATTEND Allergy & Immunology
PROC: HZ42ZZZ Group Counseling for Substance Abuse Treatment, Cognitive-Behavioral (ICD-10-PCS; principal; 2021-01-24)
DX: F10.20 Alcohol dependence, uncomplicated (principal); F11.20 Opioid dependence, uncomplicated; F13.20 Sedative, hypnotic or anxiolytic dependence, uncomplicated; F19.282 Other psychoactive substance dependence with psychoactive substance-induced sleep disorder; F19.280 Other psychoactive substance dependence with psychoactive substance-induced anxiety disorder; K50.90 Crohn's disease, unspecified, without complications; Z68.1 Body mass index [BMI] 19.9 or less, adult; F12.20 Cannabis dependence, uncomplicated; F17.210 Nicotine dependence, cigarettes, uncomplicated; F19.24 Other psychoactive substance dependence with psychoactive substance-induced mood disorder; F32.9 Major depressive disorder, single episode, unspecified; D50.9 Iron deficiency anemia, unspecified; I10 Essential (primary) hypertension; K21.9 Gastro-esophageal reflux disease without esophagitis; M19.071 Primary osteoarthritis, right ankle and foot; M19.072 Primary osteoarthritis, left ankle and foot; B35.3 Tinea pedis; R63.4 Abnormal weight loss

== ENCOUNTER 2022-02-14 12:21 | Inpatient (IN) | payer OTHER ==
[2022-02-14 12:51] VITALS: BMI 18.1
[2022-02-14] MEDS ORDERED: NALOXONE HCL (KLOXXADO) 8 MG SPRAY NS PRN (14:20)
[2022-02-14] MEDS ORDERED: MAG HYDROX/AL HYDROX/SIMETH 30 ML UNIT-DOSE CUP PO PRN (14:20)
[2022-02-14] MEDS ORDERED: LOPERAMIDE HCL 2 MG CAPSULE PO PRN (14:20)
[2022-02-14] MEDS ORDERED: DICYCLOMINE HCL 10 MG CAPSULE PO PRN (14:20)
[2022-02-14] MEDS ORDERED: diazePAM 5 MG TABLET PO ONE (14:20)
[2022-02-14] MEDS ORDERED: ACETAMINOPHEN 325 MG TABLET (FP) PO PRN ×2 (14:20)
[2022-02-14] MEDS ORDERED: ONDANSETRON *ODT* 4 MG TABLET SL PRN (14:20)
[2022-02-14] MEDS ORDERED: BENZOCAINE/MENTHOL (CHLORASEPTIC ) LOZENGE MM PRN (14:20)
[2022-02-14] MEDS ORDERED: IBUPROFEN 400 MG TABLET (FP) PO PRN (14:20)
[2022-02-14] MEDS ORDERED: MAGNESIUM CITRATE 300 ML BOTTLE PO PRN (14:20)
[2022-02-14] MEDS ORDERED: BISMUTH SUBSALICYLATE 524 MG/30 ML PO PRN (14:20)
[2022-02-14] MEDS ORDERED: NICOTINE 10 MG CARTRIDGE (INHALER) IH PRN (14:20)
[2022-02-14] MEDS ORDERED: MAGNESIUM HYDROX 2400MG/30ML ORAL SUSPENSION 30 ML CUP PO PRN (14:20)
[2022-02-14] MEDS ORDERED: IBUPROFEN 600 MG TABLET (FP) PO PRN (14:20)
[2022-02-14] MEDS ORDERED: BENZOCAINE 20 % GEL TUBE MM PRN (14:22)
[2022-02-14] MEDS: NICOTINE 21 MG/24 HOURS TOPICAL PATCH TD SCH (17:21)
[2022-02-14] MEDS: diazePAM 5 MG TABLET PO SCH ×2 (17:22→22:13)
[2022-02-14] MEDS: diazePAM 5 MG TABLET PO PRN ×2 (17:23→22:12)
[2022-02-14] MEDS: NICOTINE POLACRILEX 2 MG GUM BUC PRN ×2 (19:55→22:16)
[2022-02-14] MEDS ORDERED: MELATONIN 5 MG TABLETS PO SCH (22:00)
[2022-02-14] MEDS: METHOCARBAMOL 500 MG TABLET PO PRN (22:11)
[2022-02-14] MEDS: THIAMINE HCL 100 MG TABLET (FP) PO SCH (22:11)
[2022-02-15] MEDS: diazePAM 5 MG TABLET PO PRN ×3 (03:42→19:49)
[2022-02-15] MEDS: diazePAM 5 MG TABLET PO SCH ×4 (05:54→22:05)
[2022-02-15] MEDS ORDERED: methaDONE HCL 10 MG TABLET PO ONE ×2 (05:56→06:53)
[2022-02-15] MEDS: NICOTINE POLACRILEX 2 MG GUM BUC PRN (07:40)
[2022-02-15] MEDS: PRENATAL VITAMINS W/ FOLIC ACID TABLET (FP) PO SCH (10:19)
[2022-02-15] MEDS: NICOTINE 21 MG/24 HOURS TOPICAL PATCH TD SCH (12:54)
[2022-02-15] MEDS: METHOCARBAMOL 500 MG TABLET PO PRN ×2 (14:28→19:48)
[2022-02-15] MEDS ORDERED: SUVOREXANT 10 MG TABLET PO PRN (22:00)
[2022-02-15] MEDS: THIAMINE HCL 100 MG TABLET (FP) PO SCH (22:03)
[2022-02-15 23:26] VITALS: RESP 18
[2022-02-16] MEDS: diazePAM 5 MG TABLET PO PRN ×2 (02:18→12:45)
[2022-02-16] MEDS: NICOTINE POLACRILEX 2 MG GUM BUC PRN ×3 (02:28→12:43)
[2022-02-16] MEDS: diazePAM 5 MG TABLET PO SCH ×3 (07:22→13:09)
[2022-02-16] MEDS ORDERED: methaDONE HCL 10 MG TABLET PO SCH (07:45)
[2022-02-16] MEDS: PRENATAL VITAMINS W/ FOLIC ACID TABLET (FP) PO SCH (10:44)
[2022-02-16] MEDS: NICOTINE 21 MG/24 HOURS TOPICAL PATCH TD SCH (10:44)
[2022-02-16] MEDS: METHOCARBAMOL 500 MG TABLET PO PRN (12:41)
[2022-02-16 13:07] VITALS: TEMP 97.7
[2022-02-16 15:43] VITALS: BP 152/88; PULSE 74
[2022-02-17] MEDS ORDERED: diazePAM 5 MG TABLET PO SCH (06:00)
[2022-02-18] MEDS ORDERED: diazePAM 5 MG TABLET PO ONE (06:00)
== END 2022-02-16 16:28 | disposition left against medical advice (07) | DRG 894 ==
LOC: YASAS 12:21 → Y6N 15:41
PROVIDERS: ADMIT Allergy & Immunology; ATTEND Surgery
PROC: HZ2ZZZZ Detoxification Services for Substance Abuse Treatment (ICD-10-PCS; principal; 2022-02-14)
DX: F13.230 Sedative, hypnotic or anxiolytic dependence with withdrawal, uncomplicated (principal); F11.20 Opioid dependence, uncomplicated; F14.20 Cocaine dependence, uncomplicated; F19.282 Other psychoactive substance dependence with psychoactive substance-induced sleep disorder; F19.280 Other psychoactive substance dependence with psychoactive substance-induced anxiety disorder; F12.20 Cannabis dependence, uncomplicated; F17.210 Nicotine dependence, cigarettes, uncomplicated; F19.24 Other psychoactive substance dependence with psychoactive substance-induced mood disorder; M17.0 Bilateral primary osteoarthritis of knee; K21.9 Gastro-esophageal reflux disease without esophagitis; M54.50 Low back pain, unspecified; G89.29 Other chronic pain; M19.071 Primary osteoarthritis, right ankle and foot; M19.072 Primary osteoarthritis, left ankle and foot; S00.81XA Abrasion of other part of head, initial encounter; Y04.0XXA Assault by unarmed brawl or fight, initial encounter; Y92.239 Unspecified place in hospital as the place of occurrence of the external cause; Z86.19 Personal history of other infectious and parasitic diseases; Z59.01 Sheltered homelessness; Z56.0 Unemployment, unspecified
CPT/HCPCS: C9803-CS; U0003; U0005

== ENCOUNTER 2023-03-19 13:03 | Inpatient (IN) | payer OTHER ==
[2023-03-19 13:35] VITALS: BMI 17.0
[2023-03-19] MEDS ORDERED: guaiFENesin 600 MG TABLET.ER (FP) PO PRN (16:16)
[2023-03-19] MEDS ORDERED: DICYCLOMINE HCL 10 MG CAPSULE PO PRN (16:16)
[2023-03-19] MEDS ORDERED: ONDANSETRON *ODT* 4 MG TABLET SL PRN (16:16)
[2023-03-19] MEDS ORDERED: NALOXONE HCL 0.4 MG/ML VIAL IM PRN (16:16)
[2023-03-19] MEDS ORDERED: BISMUTH SUBSALICYLATE 524 MG/30 ML PO PRN (16:16)
[2023-03-19] MEDS ORDERED: BENZONATATE 200 MG CAPSULE PO PRN (16:16)
[2023-03-19] MEDS ORDERED: NALOXONE HCL (KLOXXADO) 8 MG SPRAY NS PRN (16:16)
[2023-03-19] MEDS ORDERED: MAGNESIUM HYDROX 2400MG/30ML ORAL SUSPENSION 30 ML CUP PO PRN (16:16)
[2023-03-19] MEDS ORDERED: POLYETHYLENE GLYCOL (HEALTHYLAX) 3350 17 GM PACKET PO PRN (16:16)
[2023-03-19] MEDS ORDERED: MAG HYDROX/AL HYDROX/SIMETH 30 ML UNIT-DOSE CUP PO PRN (16:16)
[2023-03-19] MEDS ORDERED: LOPERAMIDE HCL 2 MG CAPSULE PO PRN (16:16)
[2023-03-19] MEDS ORDERED: ACETAMINOPHEN 325 MG TABLET (FP) PO PRN (16:16)
[2023-03-19] MEDS ORDERED: IBUPROFEN 400 MG TABLET (FP) PO PRN (16:16)
[2023-03-19] MEDS ORDERED: IBUPROFEN 600 MG TABLET (FP) PO PRN (16:16)
[2023-03-19] MEDS ORDERED: BENZOCAINE/MENTHOL (CHLORASEPTIC ) LOZENGE MM PRN (16:16)
[2023-03-19] MEDS ORDERED: P-EPHED 60MG/TRIPROLIDI 2.5MG TABLET PO PRN (16:18)
[2023-03-19] MEDS: hydrOXYzine PAMOATE 25 MG CAPSULE (FP) PO PRN ×2 (17:38→22:31)
[2023-03-19] MEDS: METHOCARBAMOL 500 MG TABLET PO PRN (17:38)
[2023-03-19] MEDS: NICOTINE POLACRILEX 2 MG GUM BUC PRN ×2 (17:40→19:48)
[2023-03-19 20:56] VITALS: RESP 16
[2023-03-19] MEDS ORDERED: THIAMINE HCL 100 MG TABLET (FP) PO SCH (22:00)
[2023-03-19] MEDS ORDERED: QUEtiapine FUMARATE 50 MG TABLET PO PRN (22:00)
[2023-03-20 06:41] VITALS: TEMP 97.8
[2023-03-20] MEDS: NICOTINE POLACRILEX 2 MG GUM BUC PRN (08:33)
[2023-03-20 09:02] VITALS: BP 141/88; PULSE 70
[2023-03-20] MEDS: METHOCARBAMOL 500 MG TABLET PO PRN (09:05)
[2023-03-20] MEDS: hydrOXYzine PAMOATE 25 MG CAPSULE (FP) PO PRN (09:05)
[2023-03-20] MEDS ORDERED: methaDONE HCL 10 MG TABLET PO SCH (09:15)
[2023-03-20] MEDS ORDERED: diazePAM 5 MG TABLET PO PRN (09:21)
[2023-03-20] MEDS ORDERED: PRENATAL VITAMINS W/ FOLIC ACID TABLET (FP) PO SCH (10:00)
[2023-03-20] MEDS ORDERED: diazePAM 5 MG TABLET PO SCH (11:00)
[2023-03-21] MEDS ORDERED: diazePAM 5 MG TABLET PO SCH (06:00)
[2023-03-22] MEDS ORDERED: diazePAM 5 MG TABLET PO SCH (06:00)
[2023-03-23] MEDS ORDERED: diazePAM 5 MG TABLET PO ONE (06:00)
== END 2023-03-20 10:20 | disposition left against medical advice (07) | DRG 894 ==
LOC: YASAS 13:03 → UNDOADMIN 16:36 → Y6N 16:36 → UNDODISIN 03-20 10:20
PROVIDERS: ADMIT Allergy & Immunology; ATTEND Surgery
PROC: HZ2ZZZZ Detoxification Services for Substance Abuse Treatment (ICD-10-PCS; principal; 2023-03-19)
DX: F13.230 Sedative, hypnotic or anxiolytic dependence with withdrawal, uncomplicated (principal); F11.20 Opioid dependence, uncomplicated; F14.20 Cocaine dependence, uncomplicated; F19.282 Other psychoactive substance dependence with psychoactive substance-induced sleep disorder; F12.20 Cannabis dependence, uncomplicated; F17.210 Nicotine dependence, cigarettes, uncomplicated; F19.24 Other psychoactive substance dependence with psychoactive substance-induced mood disorder; K21.9 Gastro-esophageal reflux disease without esophagitis; M17.0 Bilateral primary osteoarthritis of knee; M54.50 Low back pain, unspecified; G89.29 Other chronic pain
CPT/HCPCS: 87635; 87811

== ENCOUNTER 2023-09-15 11:33 | Inpatient (IN) | payer OTHER ==
[2023-09-15 13:07] VITALS: BMI 18.1
[2023-09-15] MEDS ORDERED: LOPERAMIDE HCL 2 MG CAPSULE PO PRN (14:05)
[2023-09-15] MEDS ORDERED: BISMUTH SUBSALICYLATE 262 MG/15 ML BTL PO PRN (14:05)
[2023-09-15] MEDS ORDERED: P-EPHED 60MG/TRIPROLIDI 2.5MG TABLET PO PRN (14:05)
[2023-09-15] MEDS ORDERED: POLYETHYLENE GLYCOL (HEALTHYLAX) 3350 17 GM PACKET PO PRN (14:05)
[2023-09-15] MEDS ORDERED: ONDANSETRON *ODT* 4 MG TABLET SL PRN (14:05)
[2023-09-15] MEDS ORDERED: NALOXONE HCL (KLOXXADO) 8 MG SPRAY NS PRN (14:05)
[2023-09-15] MEDS ORDERED: BENZOCAINE/MENTHOL (CHLORASEPTIC ) LOZENGE MM PRN (14:05)
[2023-09-15] MEDS ORDERED: NALOXONE HCL 0.4 MG/ML VIAL IM PRN (14:05)
[2023-09-15] MEDS ORDERED: MAGNESIUM HYDROX 2400MG/30ML ORAL SUSPENSION 30 ML CUP PO PRN (14:05)
[2023-09-15] MEDS ORDERED: IBUPROFEN 400 MG TABLET (FP) PO PRN (14:05)
[2023-09-15] MEDS ORDERED: BENZONATATE 200 MG CAPSULE PO PRN (14:05)
[2023-09-15] MEDS ORDERED: guaiFENesin 600 MG TABLET.ER (FP) PO PRN (14:05)
[2023-09-15] MEDS ORDERED: MAG HYDROX/AL HYDROX/SIMETH 30 ML UNIT-DOSE CUP PO PRN (14:05)
[2023-09-15] MEDS: methaDONE HCL 10 MG TABLET PO ONE (17:18)
[2023-09-15] MEDS: METHOCARBAMOL 500 MG TABLET PO PRN (17:18)
[2023-09-15] MEDS ORDERED: hydrOXYzine PAMOATE 25 MG CAPSULE (FP) PO PRN (19:18)
[2023-09-15] MEDS: hydrOXYzine PAMOATE 25 MG CAPSULE (FP) PO ONE (19:54)
[2023-09-15] MEDS: levETIRAcetam 500 MG TABLET (FP) PO SCH (22:11)
[2023-09-15] MEDS: THIAMINE HCL 100 MG TABLET (FP) PO SCH (22:11)
[2023-09-15] MEDS: MELATONIN 5 MG TABLETS PO SCH (22:11)
[2023-09-15] MEDS: NICOTINE POLACRILEX 2 MG GUM BUC PRN (22:54)
[2023-09-16] MEDS: ACETAMINOPHEN 325 MG TABLET (FP) PO PRN (06:02)
[2023-09-16] MEDS: methaDONE HCL 40 MG DISPERSABLE TABLET PO SCH (07:52)
[2023-09-16] MEDS: PRENATAL VITAMINS W/ FOLIC ACID TABLET (FP) PO SCH (10:07)
[2023-09-16] MEDS: IBUPROFEN 600 MG TABLET (FP) PO PRN (12:05)
[2023-09-16 12:19] LABS: HEMATOCRIT 25.2 % (35.4-49); HEMOGLOBIN 8.2 GM/dL (11.7-16.9); MCH 22.7 pg (25.7-33.7); MCHC 32.4 g/dl (32.0-35.9); PLATELET COUNT 324 10^3/uL (134-434); RDW 17.4 % (11.9-15.9); WHITE BLOOD COUNT 5.3 K/mm3 (4.0-10.0)
[2023-09-16 12:47] LABS: POTASSIUM 4.2 mmol/L (3.5-5.1)
[2023-09-16 13:09] LABS: BLOOD UREA NITROGEN 11.2 mg/dL (7-18); CALCIUM 8.7 mg/dL (8.5-10.1)
[2023-09-16] MEDS: diazePAM 5 MG TABLET PO ONE (13:12)
[2023-09-16 13:13] LABS: CREATININE 0.8 mg/dL (0.55-1.3)
[2023-09-16 13:14] LABS: BILIRUBIN,TOTAL 0.5 mg/dL (0.2-1); TOT PROT 6.2 g/dl (6.4-8.2)
[2023-09-16] MEDS ORDERED: cloNIDine HCL 0.1 MG TABLET PO PRN (13:36)
[2023-09-16] MEDS: amLODIPine BESYLATE 2.5 MG TABLET (FP) PO SCH (14:05)
[2023-09-16] MEDS: diazePAM 5 MG TABLET PO SCH (17:31)
[2023-09-16] MEDS ORDERED: SUVOREXANT 10 MG TABLET PO PRN (22:00)
[2023-09-16] MEDS: DICYCLOMINE HCL 10 MG CAPSULE PO PRN (22:07)
[2023-09-17] MEDS: FERROUS SO4 325 MG TABLET (FP) PO SCH (12:34)
[2023-09-17] MEDS: SUVOREXANT 15 MG TABLET PO PRN (22:07)
[2023-09-18] MEDS: diazePAM 5 MG TABLET PO SCH (05:19)
[2023-09-18] MEDS: diazePAM 5 MG TABLET PO PRN (11:13)
[2023-09-19] MEDS: diazePAM 5 MG TABLET PO SCH (05:12)
[2023-09-19 07:10] VITALS: RESP 16
[2023-09-19 13:20] VITALS: TEMP 97.7
[2023-09-19] MEDS ORDERED: SUVOREXANT 15 MG TABLET PO PRN (23:01)
[2023-09-19] MEDS: SUVOREXANT 15 MG TABLET PO ONE (23:14)
[2023-09-20] MEDS: diazePAM 5 MG TABLET PO ONE (05:23)
[2023-09-20 09:55] VITALS: BP 148/99; PULSE 72
== END 2023-09-20 10:30 | disposition home or self-care (01) | DRG 897 ==
LOC: YASAS 11:33 → Y6N 14:11
PROVIDERS: ADMIT Allergy & Immunology; ATTEND Surgery
PROC: HZ2ZZZZ Detoxification Services for Substance Abuse Treatment (ICD-10-PCS; principal; 2023-09-15)
DX: F13.230 Sedative, hypnotic or anxiolytic dependence with withdrawal, uncomplicated (principal); F11.20 Opioid dependence, uncomplicated; F14.20 Cocaine dependence, uncomplicated; F19.282 Other psychoactive substance dependence with psychoactive substance-induced sleep disorder; Z68.1 Body mass index [BMI] 19.9 or less, adult; F12.20 Cannabis dependence, uncomplicated; F17.210 Nicotine dependence, cigarettes, uncomplicated; F19.24 Other psychoactive substance dependence with psychoactive substance-induced mood disorder; G47.00 Insomnia, unspecified; D50.9 Iron deficiency anemia, unspecified; I10 Essential (primary) hypertension; K21.9 Gastro-esophageal reflux disease without esophagitis; M17.0 Bilateral primary osteoarthritis of knee; M54.50 Low back pain, unspecified; G89.29 Other chronic pain; R56.9 Unspecified convulsions; R63.6 Underweight; Z86.19 Personal history of other infectious and parasitic diseases
CPT/HCPCS: 36415; 80053; 80307; 85027; 86780; 93005; 93010

== ENCOUNTER 2023-12-22 14:15 | Inpatient (IN) | payer OTHER ==
[2023-12-22 15:46] VITALS: BMI 17.9
[2023-12-22] MEDS ORDERED: ONDANSETRON *ODT* 4 MG TABLET SL PRN (16:27)
[2023-12-22] MEDS ORDERED: MAGNESIUM HYDROX 2400MG/30ML ORAL SUSPENSION 30 ML CUP PO PRN (16:27)
[2023-12-22] MEDS ORDERED: IBUPROFEN 400 MG TABLET (FP) PO PRN (16:27)
[2023-12-22] MEDS ORDERED: guaiFENesin 600 MG TABLET.ER (FP) PO PRN (16:27)
[2023-12-22] MEDS ORDERED: BENZONATATE 200 MG CAPSULE PO PRN (16:27)
[2023-12-22] MEDS ORDERED: LOPERAMIDE HCL 2 MG CAPSULE PO PRN (16:27)
[2023-12-22] MEDS ORDERED: ACETAMINOPHEN 325 MG TABLET (FP) PO PRN (16:27)
[2023-12-22] MEDS ORDERED: MAG HYDROX/AL HYDROX/SIMETH 30 ML UNIT-DOSE CUP PO PRN (16:27)
[2023-12-22] MEDS ORDERED: NALOXONE HCL 0.4 MG/ML VIAL IM PRN (16:27)
[2023-12-22] MEDS ORDERED: DICYCLOMINE HCL 10 MG CAPSULE PO PRN (16:27)
[2023-12-22] MEDS ORDERED: POLYETHYLENE GLYCOL (HEALTHYLAX) 3350 17 GM PACKET PO PRN (16:27)
[2023-12-22] MEDS ORDERED: BENZOCAINE/MENTHOL (CHLORASEPTIC ) LOZENGE MM PRN (16:27)
[2023-12-22] MEDS ORDERED: NALOXONE (NARCAN) HCL 4 MG/0.1 ML SPRAY NS PRN (16:27)
[2023-12-22] MEDS ORDERED: P-EPHED 60MG/TRIPROLIDI 2.5MG TABLET PO PRN (16:27)
[2023-12-22] MEDS ORDERED: NICOTINE POLACRILEX 2 MG LOZENGE BC PRN (16:27)
[2023-12-22] MEDS: diazePAM 5 MG TABLET PO PRN (18:58)
[2023-12-22] MEDS: NICOTINE POLACRILEX 2 MG GUM BUC PRN (18:59)
[2023-12-22] MEDS: MELATONIN 5 MG TABLETS PO SCH (23:05)
[2023-12-22] MEDS: THIAMINE 100 MG TABLET PO SCH (23:05)
[2023-12-22] MEDS: FERROUS SO4 325 MG TABLET (FP) PO SCH (23:06)
[2023-12-23] MEDS: diazePAM 5 MG TABLET PO SCH (05:35)
[2023-12-23] MEDS: methaDONE HCL 40 MG DISPERSABLE TABLET PO SCH (08:21)
[2023-12-23] MEDS: PRENATAL VITAMINS W/ FOLIC ACID TABLET (FP) PO SCH (10:02)
[2023-12-23] MEDS: amLODIPine BESYLATE 2.5 MG TABLET (FP) PO SCH (10:42)
[2023-12-23] MEDS: levETIRAcetam 500 MG TABLET (FP) PO SCH (10:43)
[2023-12-23] MEDS: BISMUTH SUBSALICYLATE 524 MG/30 ML PO PRN (13:13)
[2023-12-23] MEDS: IBUPROFEN 600 MG TABLET (FP) PO PRN (17:29)
[2023-12-23] MEDS: METHYL SALICYLATE/MENTHOL OINT 30 GM TUBE TP SCH (23:18)
[2023-12-23] MEDS: METHOCARBAMOL 500 MG TABLET PO PRN (23:19)
[2023-12-23] MEDS: SUVOREXANT 15 MG TABLET PO PRN (23:19)
[2023-12-24] MEDS: diazePAM 5 MG TABLET PO SCH (05:30)
[2023-12-24] MEDS: LIDOCAINE 4% PATCH TP SCH (12:45)
[2023-12-24] MEDS: LIDOCAINE PATCH REMOVAL MC SCH (23:16)
[2023-12-25] MEDS: diazePAM 5 MG TABLET PO SCH (05:28)
[2023-12-26] MEDS: diazePAM 5 MG TABLET PO ONE (05:20)
[2023-12-26] MEDS: SUVOREXANT 15 MG TABLET PO ONE (22:59)
[2023-12-27 06:00] VITALS: RESP 16
[2023-12-27 09:18] VITALS: BP 135/94; PULSE 66; TEMP 97.3
== END 2023-12-27 12:14 | disposition home or self-care (01) | DRG 897 ==
LOC: YASAS 14:15 → Y6N 17:41
PROVIDERS: ADMIT Allergy & Immunology; ATTEND Surgery
PROC: HZ2ZZZZ Detoxification Services for Substance Abuse Treatment (ICD-10-PCS; principal; 2023-12-22)
DX: F13.230 Sedative, hypnotic or anxiolytic dependence with withdrawal, uncomplicated (principal); F11.20 Opioid dependence, uncomplicated; F14.20 Cocaine dependence, uncomplicated; B19.10 Unspecified viral hepatitis B without hepatic coma; Z68.1 Body mass index [BMI] 19.9 or less, adult; F12.20 Cannabis dependence, uncomplicated; F17.210 Nicotine dependence, cigarettes, uncomplicated; D50.9 Iron deficiency anemia, unspecified; B18.2 Chronic viral hepatitis C; R63.4 Abnormal weight loss
CPT/HCPCS: 80305; 80307; 87811

== ENCOUNTER 2024-03-20 11:41 | Inpatient (IN) | payer OTHER ==
[2024-03-20 12:16] VITALS: BMI 17.8
[2024-03-20] MEDS ORDERED: LOPERAMIDE HCL 2 MG CAPSULE PO PRN (13:57)
[2024-03-20] MEDS ORDERED: BENZONATATE 200 MG CAPSULE PO PRN (13:57)
[2024-03-20] MEDS ORDERED: hydrOXYzine PAMOATE 25 MG CAPSULE (FP) PO PRN (13:57)
[2024-03-20] MEDS ORDERED: NALOXONE (NARCAN) HCL 4 MG/0.1 ML SPRAY NS PRN (13:57)
[2024-03-20] MEDS ORDERED: IBUPROFEN 400 MG TABLET (FP) PO PRN (13:57)
[2024-03-20] MEDS ORDERED: DICYCLOMINE HCL 10 MG CAPSULE PO PRN (13:57)
[2024-03-20] MEDS ORDERED: MAG HYDROX/AL HYDROX/SIMETH 30 ML UNIT-DOSE CUP PO PRN (13:57)
[2024-03-20] MEDS ORDERED: POLYETHYLENE GLYCOL (HEALTHYLAX) 3350 17 GM PACKET PO PRN (13:57)
[2024-03-20] MEDS ORDERED: MAGNESIUM HYDROX 2400MG/30ML ORAL SUSPENSION 30 ML CUP PO PRN (13:57)
[2024-03-20] MEDS ORDERED: guaiFENesin 600 MG TABLET.ER (FP) PO PRN (13:57)
[2024-03-20] MEDS ORDERED: BENZOCAINE/MENTHOL (CHLORASEPTIC ) LOZENGE MM PRN (13:57)
[2024-03-20] MEDS ORDERED: PATIENT'S OWN MEDICATION (NON-FORMULARY) (Ferrous Sulfate [Ferrous Sulfate] 325 MG Tablet) PO SCH (14:00)
[2024-03-20] MEDS: PRENATAL VITAMINS W/ FOLIC ACID TABLET (FP) PO SCH (14:35)
[2024-03-20] MEDS ORDERED: amLODIPine BESYLATE 5 MG TABLET (FP) ONE (15:35)
[2024-03-20] MEDS ORDERED: diazePAM 5 MG TABLET ONE (15:35)
[2024-03-20] MEDS: diazePAM 5 MG TABLET PO PRN (15:44)
[2024-03-20] MEDS: amLODIPine BESYLATE 2.5 MG TABLET (FP) PO SCH (15:45)
[2024-03-20] MEDS: diazePAM 5 MG TABLET PO SCH (17:51)
[2024-03-20] MEDS: NICOTINE POLACRILEX 2 MG GUM BUC PRN (19:50)
[2024-03-20] MEDS ORDERED: PATIENT'S OWN MEDICATION (NON-FORMULARY) (Gabapentin [Gabapentin] 800 MG Tablet) PO SCH (22:00)
[2024-03-20] MEDS: FERROUS SO4 325 MG TABLET (FP) PO SCH (22:14)
[2024-03-20] MEDS: GABAPENTIN 400 MG CAPSULE PO SCH (22:14)
[2024-03-20] MEDS: THIAMINE 100 MG TABLET PO SCH (22:14)
[2024-03-20] MEDS: levETIRAcetam 500 MG TABLET (FP) PO SCH (22:14)
[2024-03-20] MEDS: MELATONIN 5 MG TABLETS PO SCH (22:16)
[2024-03-21] MEDS: methaDONE HCL 40 MG DISPERSABLE TABLET PO SCH (09:02)
[2024-03-21] MEDS: IBUPROFEN 600 MG TABLET (FP) PO PRN (09:08)
[2024-03-21 10:30] LABS: POTASSIUM 4.2 mmol/L (3.5-5.1)
[2024-03-21 10:33] LABS: ALBUMIN 3.1 g/dl (3.4-5.0); BLOOD UREA NITROGEN 18.4 mg/dL (7-18); CALCIUM 8.5 mg/dL (8.5-10.1)
[2024-03-21 10:35] LABS: HEMATOCRIT 29.7 % (35.4-49); HEMOGLOBIN 9.5 GM/dL (11.7-16.9); MCHC 32.1 g/dl (32.0-35.9); PLATELET COUNT 321 10^3/uL (134-434); RBC 3.66 M/mm3 (4.00-5.60); RDW 20.9 % (11.9-15.9); WHITE BLOOD COUNT 9.2 K/mm3 (4.0-10.0)
[2024-03-21 10:36] LABS: CREATININE 1.1 mg/dL (0.55-1.3)
[2024-03-21 10:38] LABS: BILIRUBIN,TOTAL 0.3 mg/dL (0.2-1)
[2024-03-21] MEDS: METHOCARBAMOL 500 MG TABLET PO PRN (17:26)
[2024-03-21] MEDS: SUVOREXANT 10 MG TABLET PO PRN (22:07)
[2024-03-22] MEDS: diazePAM 5 MG TABLET PO SCH (05:36)
[2024-03-22] MEDS: LIDOCAINE 5% TOPICAL PATCH TP SCH (10:42)
[2024-03-22] MEDS: LIDOCAINE PATCH REMOVAL MC SCH (21:50)
[2024-03-23] MEDS: diazePAM 5 MG TABLET PO SCH (05:34)
[2024-03-23] MEDS: ONDANSETRON *ODT* 4 MG TABLET SL PRN (05:35)
[2024-03-23] MEDS: BISMUTH SUBSALICYLATE 524 MG/30 ML PO PRN (07:26)
[2024-03-24] MEDS: ACETAMINOPHEN 325 MG TABLET (FP) PO PRN (04:23)
[2024-03-24] MEDS: diazePAM 5 MG TABLET PO ONE (05:28)
[2024-03-24 06:12] VITALS: RESP 18
[2024-03-24 09:37] VITALS: BP 132/79; PULSE 78; TEMP 97.5
[2024-03-24] MEDS: NALOXONE (NYS OPIOID OVERDOSE PROGRAM) 4 MG/0.1 ML SPRAY NS PRN (10:34)
== END 2024-03-24 11:20 | disposition home or self-care (01) | DRG 897 ==
LOC: YASAS 11:41 → Y6N 15:26
PROVIDERS: ADMIT Allergy & Immunology; ATTEND Surgery
PROC: HZ2ZZZZ Detoxification Services for Substance Abuse Treatment (ICD-10-PCS; principal; 2024-03-20)
DX: F10.230 Alcohol dependence with withdrawal, uncomplicated (principal); F11.20 Opioid dependence, uncomplicated; F13.20 Sedative, hypnotic or anxiolytic dependence, uncomplicated; F14.20 Cocaine dependence, uncomplicated; F19.282 Other psychoactive substance dependence with psychoactive substance-induced sleep disorder; F12.20 Cannabis dependence, uncomplicated; F17.210 Nicotine dependence, cigarettes, uncomplicated; F19.24 Other psychoactive substance dependence with psychoactive substance-induced mood disorder; D50.9 Iron deficiency anemia, unspecified; I10 Essential (primary) hypertension; K21.9 Gastro-esophageal reflux disease without esophagitis; M15.9 Polyosteoarthritis, unspecified; M54.50 Low back pain, unspecified; G89.29 Other chronic pain
CPT/HCPCS: 36415; 80053; 80305; 80307; 85027; 86780; 93005; 93010; Q0162